=== PATIENT | female | born 1985 | race Caucasian/White ===

== ENCOUNTER 2025-02-28 17:43 | Inpatient (IN) ==
[2025-02-28] MEDS: SODIUM CHLORIDE 0.9% 1,000 ML IV SCH (18:27)
[2025-02-28] MEDS: dexAMETHasone**PF** 10 MG/ML VIAL IV ONE (18:28)
[2025-02-28] MEDS: ACETAMINOPHEN 1000 MG/100 ML IV IV STA (18:31)
--- NOTE | 2025-02-28 18:36 | Emergency Department Note ---
Impression & Plan Seizures, Hypoxia, Leukocytosis ED Provider Note NAME: NACNY PETERSON AGE: 39 SEX: F : 1985 ARRIVES VIA: Ambulance INFORMANT: Patient, ED PROVIDER(S): Leighton Desouza MD CHIEF COMPLAINT: Seizure, headache MEDICAL DECISION MAKING: Patient presents with the above. IV was established and blood work was obtained. Patient with crackles bilateral breath sounds known history of vaping chest x-ray was obtained as the patient is hypoxic to 88%. Park shows a white count of 13 with a normal hemoglobin and platelet count kidney function is unremarkable. The patient did have an oxygen requirement to believe the patient would benefit from admission. The patient was ordered IV Rocephin. The patient may have aspirated although the patient denies any vomiting. Patient did receive her Keppra load. I did speak the on-call hospitalist service and the patient was admitted to the medicine service. I did speak with Dr. Jacobsen with neurology as the patient reportedly had 3 [id number] seizures prior to arrival he stated does not require necessarily EEG as she has a known history but does not require a continuous EEG monitoring as the patient is had no further seizures here in the department. This was conveyed to the inpatient service. Critical Care: I have personally spent 35 minutes of critical care time in direct management of this patient. This includes bedside care, interpretation of diagnostic studies, and testing, discussion with consultants, patient, and family members, and other require inpatient management activities. This 35 minutes is in excess of all separately billable procedures. Discussion w/ other healthcare providers: SULMA Dudley Dr. inpatient medicine service Dr. Jacobsen neurology Prior /Outside records reviewed: None Differential diagnosis: Epilepsy, infection, hypoglycemia, electrolyte abnormalities, cardiac sources, intracerebral event, trauma, toxicologic, neurologic, syncope, as well as other pathologies. Diagnostics, as interpreted by me: ECG: None Cardiac monitoring: An order was placed for continuous cardiac monitoring. The monitor shows a rate of 89 with sinus rhythm. Patient was placed on pulse oximetry Medical decision rules: None Imaging studies: I informally interpreted the patient's chest x-ray does not show his pneumonia or pneumothorax with formal report to follow. HPI: Patient presents due to concern for seizure. This reportedly occurred just prior to arrival. Blood sugar in the 130s. No reported infectious symptoms. She reports that she does have a known history of seizures and does follow with Dr. Dan. She also reports that she has a right sided 2 mm aneurysm. She does complain of headache. She denies any infectious symptoms cough or fever. Patient denies any shortness of breath or chest pain. Patient reportedly was 88% on room air. Patient does admit to vaping but denies any alcohol or drug use. PAST MEDICAL HISTORY: See Below PAST SURGICAL HISTORY: See Below SOCIAL HISTORY: See Below HOME MEDICATIONS: See Below ALLERGIES: See Below VITALS: See Below PHYSICAL EXAMINATION: GENERAL: NAD, non-toxic. BMI 49. EYE EXAM: Normal conjunctiva. PERRL, no anisocoria and EOM's grossly intact w/o pain. OROPHARYNX: Dry mucus membranes, edentulous. NECK: Trachea midline, no stridor. LUNGS: Crackles bilaterally. Normal chest wall mechanics. HEART: NSR, no MRG. ABDOMEN: Abdomen soft, non-tender, no masses, no rebound or guarding. BACK: No CVA TTP. SKIN: No rashes and no bruising. UPPER EXTREMITIES: Upper extremities are grossly normal. LOWER EXTREMITIES: Grossly normal, no edema. NEURO EXAM: Awake and alert, follows commands, no obvious facial asymmetry, normal speech, moves all 4 extremities. Good [id number], no drift and no sensory deficits. Past Med/Surg History Problem List (Updated 03/04/25 @ 15:32 by Leighton Desouza MD) Leukocytosis (Acute) Hypoxia (Acute) Seizures (Acute) Cerebral aneurysm without rupture Migraine Excessive daytime sleepiness Atypical seizure Seizure disorder Unspecified convulsions Other seizures Obesity, unspecified Encounter for other preprocedural examination Opioid dependence, uncomplicated Medical History Morbid exogenous obesity COPD (chronic obstructive pulmonary disease) Fatty (change of) liver, not elsewhere classified Insomnia, unspecified Major depressive disorder, single episode, unspecified Unspecified osteoarthritis, unspecified site Post-traumatic stress disorder, unspecified Gastro-esophageal reflux disease without esophagitis Type 2 diabetes mellitus Surgical History S/P colonoscopy S/P hysterectomy with oophorectomy S/P dilatation and curettage S/P tonsillectomy and adenoidectomy S/P cholecystectomy Family History Father Seizure Social History Smoking Status: Current every day smoker Tobacco Type: E-cigarettes / Vaping Age Quit Using Tobacco: 36; Second Hand Exposure: Yes; Do You Dip or Chew Tobacco: No; Hx Alcohol Use: No Hx Substance Use: No Preferred Language: Indonesian Communication Ability: Effective 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 esomeprazole [From Nexium] Allergy Intermediate Hives Verified 02/28/25 20:03 aspirin AdvReac Intermediate LOW Verified 02/28/25 20:03 DOSE-OKAY, HIGH DOSE IRRITATED STOMACH codeine AdvReac Intermediate IRRITATED Verified 02/28/25 20:03 ESOPHAGUS acetaminophen [From Tylenol] AdvReac Unknown CONTRAINDICATED Verified 02/28/25 20:03 D/T LIVER ISSUES Home Meds Home Medications Medication Instructions Recorded Confirmed albuterol sulfate 90 mcg/actuation 2 puff inhalation Q6H PRN 11/29/22 02/28/25 aerosol inhaler Shortness Of Breath Or Wheezing cholecalciferol (vitamin D3) 125 125 mcg PO DAILY 11/29/22 02/28/25 mcg (5,000 unit) capsule escitalopram oxalate 10 mg tablet 10 mg PO DAILY 11/29/22 02/28/25 famotidine 20 mg tablet 20 mg PO HS 11/29/22 02/28/25 fluticasone 100 mcg-salmeterol 50 1 inh inhalation BID 11/29/22 02/28/25 mcg/dose blistr powdr for inhalation (Advair Diskus) gabapentin 800 mg tablet 800 mg PO TID 11/29/22 02/28/25 glucose 4 gram chewable tablet 4 g PO Q15M PRN Hypoglycemia 11/29/22 02/28/25 ibuprofen 800 mg tablet 800 mg PO DAILY PRN Pain 11/29/22 02/28/25 magnesium oxide 400 mg PO DAILY 11/29/22 02/28/25 metformin 500 mg tablet 500 mg PO BID 11/29/22 02/28/25 pantoprazole 40 mg tablet,delayed 40 mg PO DAILY 11/29/22 02/28/25 release quetiapine 400 mg tablet (Seroquel) 800 mg PO HS 11/29/22 02/28/25 simvastatin 20 mg tablet (Zocor) 20 mg PO QPM 11/29/22 02/28/25 hydroxyzine HCl 50 mg tablet 200 mg PO HS 03/09/23 02/28/25 benzonatate 200 mg capsule 200 mg PO BID PRN Cough 10/16/24 02/28/25 diphenhydramine HCl 25 mg capsule 25 mg PO TID PRN ALLERGIES 10/16/24 02/28/25 (Allergy (diphenhydramine)) diazepam 5 mg/spray (0.1 mL) nasal 5 mg intranasal .COMPLEX PRN 02/28/25 02/28/25 spray Seizure Activity dulaglutide 0.75 mg/0.5 mL 0.75 mg subcut WK 02/28/25 02/28/25 subcutaneous pen injector (Trulicity) Previous Rx's Medication Instructions Recorded prochlorperazine maleate 5 mg 5 mg PO TID PRN nausea and 12/29/23 tablet vomiting #10 tabs galcanezumab-gnlm 120 mg/mL 120 mg subcut .COMPLEX #1 mL 01/23/24 subcutaneous pen injector (Emgality Pen) topiramate 200 mg tablet 200 mg PO BID 30 days #60 tabs 11/06/24 lamotrigine 200 mg tablet 200 mg PO BID 30 days #60 tabs 12/18/24 lamotrigine 25 mg tablet 50 mg (2 x 25 mg) PO BID #60 tabs 12/18/24 clonazepam 1 mg disintegrating 1 mg PO DAILY PRN seizure activity 02/20/25 tablet #20 tabs rizatriptan 10 mg disintegrating 10 mg PO Q2H PRN migraine headache 02/20/25 tablet #12 tabs Results & Data (ED) Vital Signs Vital Signs - 24 hr 02/28/25 17:53 02/28/25 17:55 02/28/25 18:31 Temperature 37 C Temperature Source Oral Pulse Rate 93 H 97 H Respiratory Rate 20 Blood Pressure 105/77 Blood Pressure Mean 86 Pulse Oximetry 94 88 L Oxygen Delivery Method Nasal Cannula Room Air Oxygen Flow Rate 2 0 Sepsis Recent Fever Within 48 Hours No Sepsis New/Unexplained Change in Mental Status No Sepsis Action Taken by Nursing No Action Required Oxygen Flow Rate - Titration 2 Pulse Oximetry Post Tiitration 92 Home Medications Current Medication List: was personally reviewed by me Laboratory Data Attestation: I reviewed the patient's lab results. 03/03/25 05:57 03/01/25 08:21 Lab Results 02/28/25 Range/Units 18:00 WBC 13.65 H (4.8-10.8) K/ul RBC 4.91 (4.20-5.40) M/uL Hgb 13.9 (12.0-16.0) g/dl Hct 42.4 (37.0-47.0) % MCV 86.4 (80.0-100.0) fL MCH 28.3 (25.0-34.0) pg MCHC 32.8 (32.0-36.0) g/dL RDW Std Deviation 39.0 (36.4-46.3) fL RDW Coeff of Ion 12.4 (11.5-14.5) % Plt Count 259 (130-400) K/uL MPV 9.2 L (9.4-12.4) fL Immature Gran % (Auto) 0.4 % Neut % (Auto) 82.5 % Lymph % (Auto) 11.0 % Walton % (Auto) 4.6 % Eos % (Auto) 1.2 % Baso % (Auto) 0.3 % Neut # (Auto) 11.26 H (1.40-6.50) K/uL Lymph # (Auto) 1.50 (1.20-3.40) K/uL Walton # (Auto) 0.63 H (0.11-0.59) K/uL Eos # (Auto) 0.16 (0.00-0.50) K/uL Baso # (Auto) 0.04 (0.00-0.20) K/uL Immature Gran # (Auto) 0.06 (0.01-0.20) K/uL ESR 35 H (0-20) mm/hr Sodium 140 (136-145) mmol/L Potassium 4.2 (3.5-5.1) mmol/L Chloride 106 (98-107) mmol/L Carbon Dioxide 25 (21-32) mmol/L Anion Gap 9 (3-11) BUN 13 (6-23) mg/dl Creatinine 0.85 (0.6-1.2) mg/dl Est Cr Clr Drug Dosing 128.5 ml/min eGFR 89.88 BUN/Creatinine Ratio 15.3 (10-20) Glucose 83 (70-99(Fasting)) mg/dl Calcium 8.8 (8.6-10.3) mg/dl Total Bilirubin 0.3 (0.2-1.0) mg/dl Direct Bilirubin 0.0 (0-0.2) mg/dl AST 14 (13-39) U/L ALT 12 (7-52) U/L Alkaline Phosphatase 148 H (34-104) U/L Total Protein 7.2 (6.0-8.3) gm/dl Albumin 4.0 (3.4-5.0) gm/dl Procalcitonin 0.05 (0-0.5) ng/ml Prolactin 17.78 ng/ml Administered Medications Discontinued Medications Acetaminophen (Acetaminophen 1000 Mg/100 Ml Iv) 1,000 mg IV NOW STA Stop: 02/28/25 18:12 Last Admin: 02/28/25 18:31 Dose: Not Given Documented By: NRB Cefuroxime Axetil (Cefuroxime Axetil 500 Mg Tab) 500 mg PO Q12 REYES Stop: 03/03/25 09:26 Last Admin: 03/03/25 09:58 Dose: 500 mg Documented By: FERNANDA Dexamethasone Sodium Phosphate (DexamethasonePf 10 Mg/Ml Vial) 10 mg IV NOW ONE Stop: 02/28/25 18:12 Last Admin: 02/28/25 18:28 Dose: 10 mg Documented By: NRRadha Escitalopram Oxalate (Escitalopram Oxalate 10 Mg Tab) 10 mg PO DAILY REYES Stop: 03/31/25 08:59 Last Admin: 03/03/25 09:18 Dose: 10 mg Documented By: Admin: 03/02/25 09:21 Dose: 10 mg Documented By: Admin: 03/01/25 10:04 Dose: Not Given Documented By: ES Famotidine (Famotidine 20 Mg Tab) 20 mg PO HS REYES Stop: 03/31/25 20:59 Last Admin: 03/02/25 20:05 Dose: 20 mg Documented By: [facility] Admin: 03/01/25 20:16 Dose: 20 mg Documented By: MARIA LUISA Fluticasone/Vilanterol (Fluticasone/Vilanterol 100/25mcg 14 Puffs/Inhaler) 1 puffs INH DAILY REYES Stop: 03/31/25 08:59 Last Admin: 03/03/25 09:19 Dose: 1 puffs Documented By: Admin: 03/02/25 09:19 Dose: 1 puffs Documented By: Admin: 03/01/25 10:04 Dose: Not Given Documented By: AIDEN Gabapentin (Gabapentin 800 Mg Tab) 800 mg PO TID REYES Stop: 03/31/25 08:59 Last Admin: 03/03/25 09:17 Dose: 800 mg Documented By: Admin: 03/02/25 20:07 Dose: 800 mg Documented By: [facility] Admin: 03/02/25 14:59 Dose: 800 mg Documented By: Admin: 03/02/25 09:21 Dose: 800 mg Documented By: Admin: 03/01/25 20:11 Dose: 800 mg Documented By: MARIA LUISA Admin: 03/01/25 13:02 Dose: Not Given Documented By: Admin: 03/01/25 10:04 Dose: Not Given Documented By: AIDEN Hydroxyzine HCl (Hydroxyzine Hcl 25 Mg Tab) 100 mg PO HS REYES Stop: 03/31/25 20:59 Last Admin: 03/02/25 20:05 Dose: 100 mg Documented By: MARIA LUISA Admin: 03/01/25 20:12 Dose: 100 mg Documented By: DARIN Sodium Chloride (Nss) 1,000 mls @ 999 mls/hr IV .Q1H1M REYES Stop: 02/28/25 19:15 Last Infusion: 02/28/25 20:00 Dose: Infused Documented By: Admin: 02/28/25 18:27 Dose: 999 mls/hr Documented By: JOHN Ceftriaxone Sodium (Rocephin) 2,000 mg in 50 mls @ 100 mls/hr IV NOW STA Stop: 02/28/25 20:29 Last Infusion: 03/01/25 01:12 Dose: Infused Documented By: MARIA LUISA Admin: 02/28/25 20:28 Dose: 100 mls/hr Documented By: ISAURO Cefepime HCl (Maxipime 2000mg) 1,000 mg in 10 mls @ 5 mls/min IV Q12H [facility]; Protocol Stop: 03/06/25 00:44 Last Admin: 03/03/25 02:13 Dose: 5 mls/min Documented By: Admin: 03/02/25 15:01 Dose: 5 mls/min Documented By: Admin: 03/02/25 01:56 Dose: 5 mls/min Documented By: MARIA LUISA Admin: 03/01/25 13:27 Dose: 5 mls/min Documented By: Admin: 03/01/25 01:28 Dose: 5 mls/min Documented By: DARIN Ioversol (Optiray 320 125ml) 115 ml IV ONCE ONE Stop: 02/28/25 19:31 Last Admin: 02/28/25 19:31 Dose: 115 ml Documented By: JANUSZ Lamotrigine (Lamotrigine 25 Mg Tab) 50 mg PO BID [facility]; Protocol Stop: 03/31/25 08:59 Last Admin: 03/03/25 09:18 Dose: 50 mg Documented By: Admin: 03/02/25 20:08 Dose: 50 mg Documented By: MARIA LUISA Admin: 03/02/25 09:20 Dose: 50 mg Documented By: Admin: 03/01/25 20:11 Dose: 50 mg Documented By: MARIA LUISA Admin: 03/01/25 10:04 Dose: Not Given Documented By: AIDEN Lamotrigine (Lamotrigine 100 Mg Tab) 200 mg PO BID [facility] Stop: 03/31/25 08:59 Last Admin: 03/03/25 09:17 Dose: 200 mg Documented By: Admin: 03/02/25 20:07 Dose: 200 mg Documented By: MARIA LUISA Admin: 03/02/25 09:21 Dose: 200 mg Documented By: Admin: 03/01/25 20:13 Dose: 200 mg Documented By: MARIA LUISA Admin: 03/01/25 10:05 Dose: Not Given Documented By: AIDEN Levetiracetam (Levetiracetam 500 Mg/5 Ml Vial) 2,750 mg IV NOW STA Stop: 02/28/25 18:21 Last Admin: 02/28/25 18:31 Dose: 2,750 mg Documented By: NRRadha Lorazepam (Lorazepam 2 Mg/1 Ml Vial) 1 mg IV NOW STA Stop: 02/28/25 21:53 Last Admin: 02/28/25 22:03 Dose: 1 mg Documented By: MAIKEL Lorazepam (Lorazepam 2 Mg/1 Ml Vial) Confirm Administered Dose 2 mg .ROUTE .STK- MED ONE Stop: 03/01/25 07:59 Last Admin: 03/01/25 08:01 Dose: 2 mg Documented By: AIDEN Lorazepam (Lorazepam 2 Mg/1 Ml Vial) 2 mg IV NOW STA Stop: 03/01/25 08:11 Last Admin: 03/01/25 09:36 Dose: Not Given Documented By: ES Melatonin (Melatonin 3 Mg Tab) 3 mg PO HS PRN PRN Reason: Sleep Stop: 03/31/25 00:44 Last Admin: 03/02/25 20:05 Dose: 3 mg Documented By: GTLaura Admin: 03/01/25 20:16 Dose: 3 mg Documented By: DARIN Miscellaneous (Remove Nicoderm Patch) 1 each N/A DAILY@0859 [facility] Stop: 03/31/25 08:58 Last Admin: 03/03/25 09:19 Dose: 1 each Documented By: Admin: 03/02/25 09:21 Dose: 1 each Documented By: Admin: 03/01/25 10:04 Dose: 1 each Documented By: AIDEN Nicotine (Nicotine 14 Mg/24 Hr Patch) 1 patch TD QAM [facility] Stop: 03/31/25 08:59 Last Admin: 03/03/25 09:19 Dose: 1 patch Documented By: Admin: 03/02/25 09:21 Dose: 1 patch Documented By: Admin: 03/01/25 10:05 Dose: Not Given Documented By: ES Ondansetron HCl (Ondansetron Inj 2 Mg/Ml 2 Ml Vial) 4 mg IV NOW STA Stop: 02/28/25 18:44 Last Admin: 02/28/25 18:47 Dose: 4 mg Documented By: NRRadha Pantoprazole Sodium (Pantoprazole 40 Mg Tab) 40 mg PO DAILY REYES Stop: 03/31/25 08:59 Last Admin: 03/03/25 09:17 Dose: 40 mg Documented By: Admin: 03/02/25 09:21 Dose: 40 mg Documented By: Admin: 03/01/25 10:05 Dose: Not Given Documented By: AIDEN Quetiapine Fumarate (Quetiapine Fumarate 200 Mg Tab) 800 mg PO HS REYES Stop: 03/31/25 20:59 Last Admin: 03/02/25 20:06 Dose: 800 mg Documented By: [facility] Admin: 03/01/25 20:13 Dose: 800 mg Documented By: [facility] Simvastatin (Simvastatin 20 Mg Tab) 20 mg PO QPM REYES Stop: 03/31/25 20:59 Last Admin: 03/02/25 20:08 Dose: 20 mg Documented By: [facility] Admin: 03/01/25 20:14 Dose: 20 mg Documented By: [facility] Topiramate (Topiramate 100 Mg Tab) 200 mg PO BID REYES Stop: 03/31/25 08:59 Last Admin: 03/03/25 09:17 Dose: 200 mg Documented By: Admin: 03/02/25 20:08 Dose: 200 mg Documented By: [facility] Admin: 03/02/25 09:21 Dose: 200 mg Documented By: Admin: 03/01/25 20:13 Dose: 200 mg Documented By: [facility] Admin: 03/01/25 10:06 Dose: Not Given Documented By: AIDEN Imaging Data Radiologist's Impression: Chest X-Ray 02/28/25 18:36 Chest radiograph, one view History: C axial Comparison: None Findings: Single AP view of the chest performed. There is a retrocardiac opacity. No focal consolidation or pleural effusion. No pneumothorax. The cardiomediastinal silhouette is within normal limits. Normal pulmonary vascularity. No evidence for lymphadenopathy. No visualized bony or soft tissue abnormality. Impression: Normal chest radiograph Retrocardiac opacity, favors a hiatal hernia. Consider follow-up CT. Electronically signed by Zachariah Dumont 02-28-2025 6:53 PM Discharge Plan Visit Data Chief Complaint: Seizure ED Provider: Leighton Desouza Discharge Problem: Seizures, Hypoxia, Leukocytosis Patient Disposition: Admitted As Inpatient Condition: Fair Discharge Instructions Interventions: ED Discharge Assessment Last Done: 03/01/25 00:16 Discharge Problem: Leukocytosis Qualifiers: Leukocytosis type: unspecified Qualified Code(s): D72.829 - Elevated white blood cell count, unspecified
[2025-02-28 18:44] LABS: Hematocrit (blood only) 42.4 % (37.0-47.0); Hemoglobin 13.9 g/dl (12.0-16.0); Immature Granulocytes # (auto) 0.06 K/uL (0.01-0.20); Immature Granulocytes % (auto) 0.4 %; Mean Corpuscular Hemoglobin 28.3 pg (25.0-34.0); Mean Corpuscular Volume 86.4 fL (80.0-100.0); Platelet Count 259 K/uL (130-400); RDW Standard Deviation 39.0 fL (36.4-46.3); Red Blood Count 4.91 M/uL (4.20-5.40); White Blood Count 13.65 K/ul (4.8-10.8)
[2025-02-28] MEDS: ONDANSETRON INJ 2 MG/ML 2 ML VIAL IV STA (18:47)
--- NOTE | 2025-02-28 18:53 | XRay Report ---
Chest radiograph, one view History: C axial Comparison: None Findings: Single AP view of the chest performed. There is a retrocardiac opacity. No focal consolidation or pleural effusion. No pneumothorax. The cardiomediastinal silhouette is within normal limits. Normal pulmonary vascularity. No evidence for lymphadenopathy. No visualized bony or soft tissue abnormality. Impression: Normal chest radiograph Retrocardiac opacity, favors a hiatal hernia. Consider follow-up CT. Electronically signed by Zachariah Dumnot 02-28-2025 6:53 PM
[2025-02-28 19:00] LABS: Anion Gap 9.0 (3-11); Blood Urea Nitrogen 13.0 mg/dl (6-23); Calcium 8.8 mg/dl (8.6-10.3); Carbon Dioxide 25.0 mmol/L (21-32); Chloride 106.0 mmol/L (98-107); Creatinine Clr Calc Pharmacy 128.5 ml/min; Glucose 83.0 mg/dl (70-99(Fasting)); Potassium 4.2 mmol/L (3.5-5.1); Sodium 140.0 mmol/L (136-145)
[2025-02-28] MEDS: OPTIRAY 320 125ml IV ONE (19:31)
--- NOTE | 2025-02-28 19:53 | CT Scan Report ---
Clinical History: Headaches. Technique: Axial computed tomography images were obtained of the brain from the vertex to the skull base without intravenous contrast. Findings: There is no sign of intracranial hemorrhage. There is normal montes-white matter differentiation with no sign of acute or old infarction. No midline shift or other form of herniation is identified. There is no hydrocephalus. No obvious mass lesion is seen on this noncontrast examination. The visualized portions of the orbits and paranasal sinuses appear unremarkable. The mastoid air cells appear clear Impression: Unremarkable noncontrast CT of the brain Electronically signed by Faustino Lundberg 02-28-2025 7:53 PM
--- NOTE | 2025-02-28 19:54 | CT Scan Report ---
Clinical history: Headache Technique: Axial computed tomography images were obtained of the brain after the administration of intravenous contrast according to the CT angiogram protocol Findings: No definite stenosis or aneurysm is seen of the anterior, middle, or posterior cerebral artery circulations. The visualized vertebral arteries and the basilar artery appear unremarkable Impression: No definite stenosis or aneurysm of the intracranial arteries Electronically signed by Faustino Lundberg 02-28-2025 7:54 PM
--- NOTE | 2025-02-28 19:56 | CT Scan Report ---
Technique: Axial computed tomography images were obtained of the neck after the administration of intravenous contrast according to the CT angiogram protocol Comparison is made to the prior CTA dated 07/11/2023 Findings: No stenosis is seen of the common carotid arteries bilaterally. The carotid bulbs appear normal. The remainder of the internal carotid arteries appear patent bilaterally. No stenosis of the external carotid arteries is seen The vertebral arteries are patent bilaterally with no significant stenosis seen. The visualized thoracic aorta appears unremarkable Impression: Unremarkable CTA of the neck Electronically signed by Faustino Lundberg 02-28-2025 7:56 PM
[2025-02-28] MEDS: cefTRIAXone SODIUM 2,000 MG/50 ML BAG IV STA (20:28)
[2025-02-28 21:16] LABS: Alanine Aminotransferase 12.0 U/L (7-52); Albumin Level 4.0 gm/dl (3.4-5.0); Alkaline Phosphatase 148.0 U/L (34-104); Bilirubin,Total 0.3 mg/dl (0.2-1.0); Total Protein 7.2 gm/dl (6.0-8.3)
--- NOTE | 2025-02-28 21:38 | History & Physical Report ---
Date of Service February 28, 2025 Assessment & Plan (1) Seizures: (2) Hypoxia: (3) Leukocytosis: Plan addendum - UA returned suspicious for UTI. Will transition coverage to cefepime given DM history. Follow urine cultures. Patient is a 39-year-old female with past medical history of seizure disorder, obesity with a BMI of 49, COPD, fatty liver disease, type II DM, GERD, depression. Patient presented via EMS after 3 seizures at home; the first 1 was at home and her family used her rescue diazepam intranasal spray (5 mg/spray), 2 were witnessed by EMS (one lasted 3 minutes reportedly, the second lasted reportedly 30 seconds). she was given Keppra 275 mg IV in the ED and is being admitted for further seizure workup. #Seizures - history of seizure disorder (nonepileptic and epileptic) with recent increase in seizures, 3 reported seizures 02/28. Head CT and CTAs negative for acute changes. BSG 83, WBC 13.65, CXR negative for acute changes, electrolytes and renal function stable. ESR 35, procalcitonin 0.05, prolactin 17.78. - MRI brain and EEG ordered - consult neurology - 2750 mg IV Keppra in ED; start 500mg BID tomorrow - continue lamotrigine 250 mg twice daily and Topiramate 200 mg twice daily as usual Given Decadron 10 mg IV in the ED, defer further steroid use as no acute indication at time of admission Seizure precautions - monitor on telemetry Trend CBC and CMP - patient's outpatient neurologist has been discussing decreasing home Seroquel as it reduces seizure threshold, will defer at this time however could consider #Hypoxianoted to be 88% in room air in the ED. CXR negative for acute changes, lungs clear bilaterally at time of admission, patient denies any vomiting at time of event, low concern for aspiration. Likely component of obesity hypoventilation syndrome with sedating agents. Wean oxygen as tolerated Incentive spirometry #LeukocytosisWBC 13.6 by the time of admission. CXR negative for acute infection. Patient denies any fevers, chills, GI symptoms, dysuria. Empirically given Rocephin 2G IV in the ED, defer further ABX use UA ordered Trend CBC #Type II DMhold metformin. Defer SSI once medically becomes required. Continue gabapentin for neuropathy #nicotine usevapes at baseline. Nicotine patch ordered Encourage smoking cessation #Mental healthcontinue Lexapro and Seroquel #GERDcontinue famotidine and pantoprazole VTE ppx: SCDs, low risk Dispo: PCU Admission and Anticipated Discharge Date Admission Date: 02/28/25 History of Present Illness Chief Complaint: seizure Primary Care Provider: Mookie Regan Patient is a 39-year-old female with past medical history of seizure disorder, obesity with a BMI of 49, COPD, fatty liver disease, type II DM, GERD, depression. Patient presented via EMS after 3 seizures at home; the first 1 was at home and her family used her rescue diazepam intranasal spray (5 mg/spray), 2 were witnessed by EMS (one lasted 3 minutes reportedly, the second lasted reportedly 30 seconds). she was given Keppra 275 mg IV in the ED and is being admitted for further seizure workup. Patient seen at bedside. She is tired however responds to verbal stimuli after Keppra in the ED. She stated she felt weird/flushed which she typically feels prior to her seizure and had a seizure at home with her family. She is unaware of what is happening during the seizure and is unsure of how long the first one lasted however stated her family did use her intranasal diazepam spray. En route with EMS she reportedly had 2 witnessed seizures, the first lasting 3 minutes, the second lasting 30 seconds in which she did not fully wake up from and was reportedly flaccid. Patient is alert and oriented at time of admission. She stated she took her home medications as she usual, reviewed neurology records which show lamotrigine increased from 200 mg twice daily to 225 mg twice daily 12/18. Neurologist recommended MRI and EEG at this time however has not yet been completed. I will just also mention decreasing Seroquel as it lowers her seizure threshold however held off at this time. Patient currently just has a headache in her right eye which is typical with all of her seizures. She also complains of right arm numbness which has been present since she had COVID in 2020. She denies any dizziness, lightheadedness, chest pain, shortness of breath, abdominal pain, nausea, vomiting, diarrhea. She does report difficulty urinating at home due to difficulty with ambulation, denies any dysuria. She denies any vomiting during the seizure today. She does endorse vaping use and would like a nicotine patch, ordered. She denies any alcohol use or illicit drug use. She does not use any oxygen at baseline however was noted to be 88% on room air in the ED and is currently on 2L NC. She took all of her medications today as usual. She wishes to be full code. patient noted that she previously went to [place] [facility] about 1 year ago and reportedly was diagnosed with a 2 mm brain aneurysm however not noted on diagnostic imaging today. Discussion with the ER staff who spoke with on-call neurologist. Reportedly no need for continuous EEG monitoring. Discussion with pharmacy staff regarding continuation of Keppra given patient's elevated BMIstudies revealed psych to continue with Keppra 500 mg twice daily with gradual increase to 1500 mg twice daily. Allergies Allergy/AdvReac Type Severity Reaction Status Date / Time Penicillins Allergy Severe "THROAT Verified 02/28/25 20:03 CLOSED AT AGE 4 YRS OLD". esomeprazole [From Nexium] Allergy Intermediate Hives Verified 02/28/25 20:03 aspirin AdvReac Intermediate LOW Verified 02/28/25 20:03 DOSE-OKAY, HIGH DOSE IRRITATED STOMACH codeine AdvReac Intermediate IRRITATED Verified 02/28/25 20:03 ESOPHAGUS acetaminophen [From Tylenol] AdvReac Unknown CONTRAINDICATED Verified 02/28/25 20:03 D/T LIVER ISSUES Home Medications Medication Instructions Recorded Confirmed Type albuterol sulfate 90 mcg/actuation 2 puff inhalation Q6H PRN 11/29/22 02/28/25 History aerosol inhaler Shortness Of Breath Or Wheezing cholecalciferol (vitamin D3) 125 125 mcg PO DAILY 11/29/22 02/28/25 History mcg (5,000 unit) capsule escitalopram oxalate 10 mg tablet 10 mg PO DAILY 11/29/22 02/28/25 History famotidine 20 mg tablet 20 mg PO HS 11/29/22 02/28/25 History fluticasone 100 mcg-salmeterol 50 1 inh inhalation BID 11/29/22 02/28/25 History mcg/dose blistr powdr for inhalation (Advair Diskus) gabapentin 800 mg tablet 800 mg PO TID 11/29/22 02/28/25 History glucose 4 gram chewable tablet 4 g PO Q15M PRN Hypoglycemia 11/29/22 02/28/25 History ibuprofen 800 mg tablet 800 mg PO DAILY PRN Pain 11/29/22 02/28/25 History magnesium oxide 400 mg PO DAILY 11/29/22 02/28/25 History metformin 500 mg tablet 500 mg PO BID 11/29/22 02/28/25 History pantoprazole 40 mg tablet,delayed 40 mg PO DAILY 11/29/22 02/28/25 History release quetiapine 400 mg tablet (Seroquel) 800 mg PO HS 11/29/22 02/28/25 History simvastatin 20 mg tablet (Zocor) 20 mg PO QPM 11/29/22 02/28/25 History hydroxyzine HCl 50 mg tablet 200 mg PO HS 03/09/23 02/28/25 History prochlorperazine maleate 5 mg 5 mg PO TID PRN nausea and 12/29/23 02/28/25 Rx tablet vomiting #10 tabs galcanezumab-gnlm 120 mg/mL 120 mg subcut .COMPLEX #1 mL 01/23/24 02/28/25 Rx subcutaneous pen injector (Emgality Pen) benzonatate 200 mg capsule 200 mg PO BID PRN Cough 10/16/24 02/28/25 History diphenhydramine HCl 25 mg capsule 25 mg PO TID PRN ALLERGIES 10/16/24 02/28/25 History (Allergy (diphenhydramine)) topiramate 200 mg tablet 200 mg PO BID 30 days #60 tabs 11/06/24 02/28/25 Rx lamotrigine 200 mg tablet 200 mg PO BID 30 days #60 tabs 12/18/24 02/28/25 Rx lamotrigine 25 mg tablet 50 mg (2 x 25 mg) PO BID #60 tabs 12/18/24 02/28/25 Rx clonazepam 1 mg disintegrating 1 mg PO DAILY PRN seizure activity 02/20/25 02/28/25 Rx tablet #20 tabs rizatriptan 10 mg disintegrating 10 mg PO Q2H PRN migraine headache 02/20/25 02/28/25 Rx tablet #12 tabs diazepam 5 mg/spray (0.1 mL) nasal 5 mg intranasal .COMPLEX PRN 02/28/25 02/28/25 History spray Seizure Activity dulaglutide 0.75 mg/0.5 mL 0.75 mg subcut WK 02/28/25 02/28/25 History subcutaneous pen injector (Trulicity) Past Med/Surg History Problem List (Updated 02/28/25 @ 23:43 by Alexandra Mackenzie PA-C) Leukocytosis Hypoxia Seizures Cerebral aneurysm without rupture Migraine Excessive daytime sleepiness Atypical seizure Seizure disorder Unspecified convulsions Other seizures Obesity, unspecified Encounter for other preprocedural examination Opioid dependence, uncomplicated Medical History Morbid exogenous obesity COPD (chronic obstructive pulmonary disease) Fatty (change of) liver, not elsewhere classified Insomnia, unspecified Major depressive disorder, single episode, unspecified Unspecified osteoarthritis, unspecified site Post-traumatic stress disorder, unspecified Gastro-esophageal reflux disease without esophagitis Type 2 diabetes mellitus Surgical History S/P colonoscopy S/P hysterectomy with oophorectomy S/P dilatation and curettage S/P tonsillectomy and adenoidectomy S/P cholecystectomy Family History Father Seizure Social History Smoking Status: Current every day smoker Tobacco Type: E-cigarettes / Vaping Age Quit Using Tobacco: 36; Second Hand Exposure: Yes; Do You Dip or Chew Tobacco: No; Hx Alcohol Use: No Hx Substance Use: No Preferred Language: Mongolian Communication Ability: Effective Doorshaker Required: No Beliefs That Will Affect Care: None Current Living Situation: Family current occupational status: disabled How many Children do You have: 2 Feels Safe at Home: Yes Safety Concerns: Feels Safe At This Time Assistive Devices: CPAP Review of Systems Review of Systems: see HPI Physical Exam Physical Exam: The patient is tired however responds to verbal stimuli, alert and oriented 3, obese, normocephalic and atraumatic, in no acute distress. Non-toxic appearing. HEENT- EOMI, mucous membranes moist. Hearing grossly intact. Heart-normal S1 and S2. No murmurs, rubs or gallops. Lungs-clear bilaterally, no respiratory distress, no accessory muscle use. Abdomen-normal bowel sounds and soft. No ascites noted. Non-tender. Extremities- no clubbing, cyanosis, or edema. Rheumatologic-normal range of motion. Psychiatric-normal affect. Results & Data Results & Data Vital Signs (Past 12 Hours) Vital Signs Temp Pulse Resp BP Pulse Ox O2 Del Method O2 Flow Rate 02/28/25 20:00 88 18 103/74 95 02/28/25 18:31 88 L Room Air 0 02/28/25 18:00 96 H 19 96/80 L 90 02/28/25 17:55 97 H 02/28/25 17:53 37 C 93 H 20 105/77 94 Nasal Cannula 2 Laboratory Results Reviewed CBC and BMP Ordered LFTs, procalcitonin, prolactin, ESR, UA Diagnostic Findings reviewed head CT, head CTA, neck CTA, CXR Medications Administered ED1L NSS bolus, Tylenol 1G IV, dexamethasone 10 mg IV, Keppra 275 mg IV, Zofran 4 Mg IV, Rocephin 2G IV AdmissionAtivan 1 Mg IV as patient reportedly claustrophobic for MRI and requesting medication ECG Additional Comments: Ordered Code Status & VTE Plan Code Status full code VTE Prophylaxis Plan VTE Prophylaxis will be ordered: Yes Supervising Physician Co-Signing Physician Notes Attending addendum: I have physically seen this patient, have supervised the TREVER's activities, and agree with the H&P unless as otherwise noted. Assessment and Plan: The patient is an 39-year-old female with past medical history including seizure disorder, obesity with BMI 49, COPD, fatty liver disease, diabetes mellitus type 2, GERD, and depression. She presents to the emergency department via EMS after 3 seizures at outside hospital, with the first being at home in the last 2 en route to the hospital. Evaluation in the emergency department included a normal CT scan of head, CTA head and neck, and chest x-ray. From the ED the patient received the following: Tylenol 1 g IV, ceftriaxone 2 g IV, dexamethasone 10 mg IV, Keppra 2750 mg IV, normal saline 1 L bolus, and Zofran 4 mg IV. [facility]. Seizure disorder/3 outside hospital seizures on 02/28- Normal CT head, CTA head and neck. Order MRI brain Order EEG Received 2750 mg Keppra IV for loading dose, LV placed on Keppra 5 mg p.o. twice daily starting tomorrow a.m. Continue lamotrigine 250 mg p.o. twice daily and topiramate 200 mg p.o. twice daily Received Decadron 10 mg IV from the ED, will not order any further at this time Seizure precautions Follow serial CBC with differential and chemistry profile Hypoxia- Normal chest x-ray Likely secondary to obesity hypoventilation syndrome Incentive spirometry Continue home inhalers as needed Diabetes mellitus type 2- Hold metformin Placed on Accu-Cheks NovoLog SSI Peripheral neuropathy- Continue gabapentin Nicotine use/vaping- Nicotine patch as ordered Smoking cessation counseling GERD- Continue pantoprazole and famotidine PG Care Time/CCT Total # of Minutes Spent Total Time Spent with Patient: Total time spent is greater than 50% in coordination of care (as documented) at patient's floor/unit and/or counseling patient: Coding Level of Care Code 29160 INT INP/OBS CARE 375MIN Diagnoses Seizures R56.9 Hypoxia R09.02 Leukocytosis D72.829
[2025-02-28 22:17] LABS: Appearance Urine Clear (Clear); Bacteria Urine Automated 4+ (None Seen); Cast Urine Automated 0-2 /lpf (0-2); Epithelial Cell Urine Auto 0-2 /hpf (0-2); Glucose Urine UA Negative (Negative); RBC Urine Automated 0-2 /hpf (0-2); WBC Urine Automated 21-50 /hpf (0-5)
--- NOTE | 2025-02-28 23:56 | Magnetic Resonance Report ---
EXAM: MR brain wo con CLINICAL HISTORY: seizure TECHNIQUE: Multisequential and multiplanar images of the brain were submitted for review without contrast. COMPARISON: FINDINGS: The bilateral hippocampus and amygdala show normal signal intensity, with mild gney-hm-nown asymmetry, slightly lesser in volume on the right side. The brain demonstrates normal morphology, signal intensity, and volume for age. No focal parenchymal lesions are seen. No intracranial hemorrhage, mass effect, midline shift, extra-axial collection, or hydrocephalus is identified. The ventricles, sulci, and basal cisterns are symmetric and normal in size and configuration. Diffusion-weighted sequences show no evidence of acute ischemic infarction. The midline structures, including the pituitary gland, corpus callosum, pineal region, and brainstem, are unremarkable. The craniovertebral junction is within normal limits. No calvarial abnormalities are identified. The paranasal sinuses and mastoid air cells are clear. The orbital structures are unremarkable. Appropriate flow voids are present in the visualized intracranial vessels. IMPRESSION: 1. No acute ischemia, space-occupying mass, or other acute intracranial pathology is demonstrated. 2. Mild nubr-kc-idrg asymmetry of hippocampal volume, slightly lesser in volume on the right side. . Stable. Electronically signed by Bashir Chong 02-28-2025 11:56 PM
[2025-03-01] MEDS ORDERED: ALBUTEROL HFA 8 GM INHALER INH PRN (00:45)
[2025-03-01] MEDS ORDERED: ONDANSETRON INJ 2 MG/ML 2 ML VIAL IV PRN (00:45)
[2025-03-01] MEDS ORDERED: POLYETHYLENE (MIRALAX) 17 GM PACK PO PRN (00:45)
[2025-03-01] MEDS ORDERED: BENZONATATE 100 MG CAPSULE PO PRN (00:45)
[2025-03-01] MEDS: CEFEPIME 1000MG 1,000 MG/10 ML SYR IV SCH (01:28)
[2025-03-01 06:10] LABS: Hematocrit (blood only) 40.5 % (37.0-47.0); Hemoglobin 13.1 g/dl (12.0-16.0); Immature Granulocytes # (auto) 0.05 K/uL (0.01-0.20); Immature Granulocytes % (auto) 0.5 %; Mean Corpuscular Hemoglobin 27.9 pg (25.0-34.0); Mean Corpuscular Volume 86.4 fL (80.0-100.0); Platelet Count 263 K/uL (130-400); RDW Standard Deviation 38.6 fL (36.4-46.3); Red Blood Count 4.69 M/uL (4.20-5.40); White Blood Count 10.55 K/ul (4.8-10.8)
[2025-03-01 06:29] LABS: Alanine Aminotransferase 10.0 U/L (7-52); Albumin Globulin Ratio 1.3 (0.9-2); Albumin Level 3.7 gm/dl (3.4-5.0); Alkaline Phosphatase 131.0 U/L (34-104); Anion Gap 7.0 (3-11); Bilirubin,Total 0.2 mg/dl (0.2-1.0); Blood Urea Nitrogen 12.0 mg/dl (6-23); Calcium 8.5 mg/dl (8.6-10.3); Carbon Dioxide 25.0 mmol/L (21-32); Chloride 108.0 mmol/L (98-107); Creatinine Clr Calc Pharmacy 150.6 ml/min; Globulin 2.9 gm/dl (2.5-4.0); Glucose 115.0 mg/dl (70-99(Fasting)); Magnesium 1.8 mg/dl (1.7-2.4); Potassium 4.2 mmol/L (3.5-5.1); Sodium 140.0 mmol/L (136-145); Total Protein 6.6 gm/dl (6.0-8.3)
--- NOTE | 2025-03-01 07:18 | Electroencephalogram ---
EEG Procedure Note Date of Service March 01, 2025 Start / End Times Start Time: 604 End Time: 624 Referring Physician henrique blanchard History seizure Home Medication List Medication Instructions Recorded Confirmed Type albuterol sulfate 90 mcg/actuation 2 puff inhalation Q6H PRN 11/29/22 02/28/25 History aerosol inhaler Shortness Of Breath Or Wheezing cholecalciferol (vitamin D3) 125 125 mcg PO DAILY 11/29/22 02/28/25 History mcg (5,000 unit) capsule escitalopram oxalate 10 mg tablet 10 mg PO DAILY 11/29/22 02/28/25 History famotidine 20 mg tablet 20 mg PO HS 11/29/22 02/28/25 History fluticasone 100 mcg-salmeterol 50 1 inh inhalation BID 11/29/22 02/28/25 History mcg/dose blistr powdr for inhalation (Advair Diskus) gabapentin 800 mg tablet 800 mg PO TID 11/29/22 02/28/25 History glucose 4 gram chewable tablet 4 g PO Q15M PRN Hypoglycemia 11/29/22 02/28/25 History ibuprofen 800 mg tablet 800 mg PO DAILY PRN Pain 11/29/22 02/28/25 History magnesium oxide 400 mg PO DAILY 11/29/22 02/28/25 History metformin 500 mg tablet 500 mg PO BID 11/29/22 02/28/25 History pantoprazole 40 mg tablet,delayed 40 mg PO DAILY 11/29/22 02/28/25 History release quetiapine 400 mg tablet (Seroquel) 800 mg PO HS 11/29/22 02/28/25 History simvastatin 20 mg tablet (Zocor) 20 mg PO QPM 11/29/22 02/28/25 History hydroxyzine HCl 50 mg tablet 200 mg PO HS 03/09/23 02/28/25 History prochlorperazine maleate 5 mg 5 mg PO TID PRN nausea and 12/29/23 02/28/25 Rx tablet vomiting #10 tabs galcanezumab-gnlm 120 mg/mL 120 mg subcut .COMPLEX #1 mL 01/23/24 02/28/25 Rx subcutaneous pen injector (Emgality Pen) benzonatate 200 mg capsule 200 mg PO BID PRN Cough 10/16/24 02/28/25 History diphenhydramine HCl 25 mg capsule 25 mg PO TID PRN ALLERGIES 10/16/24 02/28/25 History (Allergy (diphenhydramine)) topiramate 200 mg tablet 200 mg PO BID 30 days #60 tabs 11/06/24 02/28/25 Rx lamotrigine 200 mg tablet 200 mg PO BID 30 days #60 tabs 12/18/24 02/28/25 Rx lamotrigine 25 mg tablet 50 mg (2 x 25 mg) PO BID #60 tabs 12/18/24 02/28/25 Rx clonazepam 1 mg disintegrating 1 mg PO DAILY PRN seizure activity 02/20/25 02/28/25 Rx tablet #20 tabs rizatriptan 10 mg disintegrating 10 mg PO Q2H PRN migraine headache 02/20/25 02/28/25 Rx tablet #12 tabs diazepam 5 mg/spray (0.1 mL) nasal 5 mg intranasal .COMPLEX PRN 02/28/25 02/28/25 History spray Seizure Activity dulaglutide 0.75 mg/0.5 mL 0.75 mg subcut WK 02/28/25 02/28/25 History subcutaneous pen injector (Trulicity) Inpatient Medication List Cefepime HCl (Maxipime 2000mg) 1,000 mg in 10 mls @ 5 mls/min IV Q12H [facility]; Protocol Stop: 03/06/25 00:44 Last Admin: 03/01/25 01:28 Dose: 5 mls/min Documented By: GT Discontinued Medications Acetaminophen (Acetaminophen 1000 Mg/100 Ml Iv) 1,000 mg IV NOW STA Stop: 02/28/25 18:12 Last Admin: 02/28/25 18:31 Dose: Not Given Documented By: NRB Dexamethasone Sodium Phosphate (DexamethasonePf 10 Mg/Ml Vial) 10 mg IV NOW ONE Stop: 02/28/25 18:12 Last Admin: 02/28/25 18:28 Dose: 10 mg Documented By: NRB Sodium Chloride (Nss) 1,000 mls @ 999 mls/hr IV .Q1H1M REYES Stop: 02/28/25 19:15 Last Infusion: 02/28/25 20:00 Dose: Infused Documented By: Admin: 02/28/25 18:27 Dose: 999 mls/hr Documented By: NRB Ceftriaxone Sodium (Rocephin) 2,000 mg in 50 mls @ 100 mls/hr IV NOW STA Stop: 02/28/25 20:29 Last Infusion: 03/01/25 01:12 Dose: Infused Documented By: Admin: 02/28/25 20:28 Dose: 100 mls/hr Documented By: ISAURO Ioversol (Optiray 320 125ml) 115 ml IV ONCE ONE Stop: 02/28/25 19:31 Last Admin: 02/28/25 19:31 Dose: 115 ml Documented By: JANUSZ Levetiracetam (Levetiracetam 500 Mg/5 Ml Vial) 2,750 mg IV NOW STA Stop: 02/28/25 18:21 Last Admin: 02/28/25 18:31 Dose: 2,750 mg Documented By: JOHN Lorazepam (Lorazepam 2 Mg/1 Ml Vial) 1 mg IV NOW STA Stop: 02/28/25 21:53 Last Admin: 02/28/25 22:03 Dose: 1 mg Documented By: MAIKEL Ondansetron HCl (Ondansetron Inj 2 Mg/Ml 2 Ml Vial) 4 mg IV NOW STA Stop: 02/28/25 18:44 Last Admin: 02/28/25 18:47 Dose: 4 mg Documented By: JOHN Description This is a 21 electrode EEG with a single channel dedicated to limited EKG. The electrodes were placed in accordance with the International 10-20 system. Interpretation This is a 21 electrode EEG with a single channel dedicated to limited EKG. The electrodes were placed in accordance with the International 10-20 system. There is a posterior dominant rhythm of 8 Hz which is symmetrically distributed and attenuates with eye opening. There is a normal anterior to posterior organization. Photic stimulation: unremarkable Hyperventilation performed: ___ unremarkable; _x_ not performed. There is no focal slowing. No epileptiform abnormalities. Sleep stage: _x_ not achieved, ___drowsy state, ___ Stage II, ___ REM stage achieved. Interpretation Normal-appearing awake EEG. [facility] EEG Procedure Codes Indication for Procedure (1) Seizures: Neurology Neurology: 65298 EEG include record awake & drowsy
--- NOTE | 2025-03-01 07:34 | Neurology Consultation ---
Date of Consultation March 01, 2025 Assessment & Plan (1) Seizures: History of Present Illness Attending Physician: Jairon Jin MD, PhD History of Present Illness S: pt this morning feeling well. resting. EEG normal. no further events. well known to Dr. Rivera. admission HPI: Patient is a 39-year-old female with past medical history of seizure disorder, obesity with a BMI of 49, COPD, fatty liver disease, type II DM, GERD, depression. Patient presented via EMS after 3 seizures at home; the first 1 was at home and her family used her rescue diazepam intranasal spray (5 mg/spray), 2 were witnessed by EMS (one lasted 3 minutes reportedly, the second lasted reportedly 30 seconds). she was given Keppra 275 mg IV in the ED and is being admitted for further seizure workup. Allergies Allergy/AdvReac Type Severity Reaction Status Date / Time Penicillins Allergy Severe "THROAT Verified 02/28/25 20:03 CLOSED AT AGE 4 YRS OLD". esomeprazole [From Nexium] Allergy Intermediate Hives Verified 02/28/25 20:03 aspirin AdvReac Intermediate LOW Verified 02/28/25 20:03 DOSE-OKAY, HIGH DOSE IRRITATED STOMACH codeine AdvReac Intermediate IRRITATED Verified 02/28/25 20:03 ESOPHAGUS acetaminophen [From Tylenol] AdvReac Unknown CONTRAINDICATED Verified 02/28/25 20:03 D/T LIVER ISSUES Home Medications Medication Instructions Recorded Confirmed Type albuterol sulfate 90 mcg/actuation 2 puff inhalation Q6H PRN 11/29/22 02/28/25 History aerosol inhaler Shortness Of Breath Or Wheezing cholecalciferol (vitamin D3) 125 125 mcg PO DAILY 11/29/22 02/28/25 History mcg (5,000 unit) capsule escitalopram oxalate 10 mg tablet 10 mg PO DAILY 11/29/22 02/28/25 History famotidine 20 mg tablet 20 mg PO HS 11/29/22 02/28/25 History fluticasone 100 mcg-salmeterol 50 1 inh inhalation BID 11/29/22 02/28/25 History mcg/dose blistr powdr for inhalation (Advair Diskus) gabapentin 800 mg tablet 800 mg PO TID 11/29/22 02/28/25 History glucose 4 gram chewable tablet 4 g PO Q15M PRN Hypoglycemia 11/29/22 02/28/25 History ibuprofen 800 mg tablet 800 mg PO DAILY PRN Pain 11/29/22 02/28/25 History magnesium oxide 400 mg PO DAILY 11/29/22 02/28/25 History metformin 500 mg tablet 500 mg PO BID 11/29/22 02/28/25 History pantoprazole 40 mg tablet,delayed 40 mg PO DAILY 11/29/22 02/28/25 History release quetiapine 400 mg tablet (Seroquel) 800 mg PO HS 11/29/22 02/28/25 History simvastatin 20 mg tablet (Zocor) 20 mg PO QPM 11/29/22 02/28/25 History hydroxyzine HCl 50 mg tablet 200 mg PO HS 03/09/23 02/28/25 History prochlorperazine maleate 5 mg 5 mg PO TID PRN nausea and 12/29/23 02/28/25 Rx tablet vomiting #10 tabs galcanezumab-gnlm 120 mg/mL 120 mg subcut .COMPLEX #1 mL 01/23/24 02/28/25 Rx subcutaneous pen injector (Emgality Pen) benzonatate 200 mg capsule 200 mg PO BID PRN Cough 10/16/24 02/28/25 History diphenhydramine HCl 25 mg capsule 25 mg PO TID PRN ALLERGIES 10/16/24 02/28/25 History (Allergy (diphenhydramine)) topiramate 200 mg tablet 200 mg PO BID 30 days #60 tabs 11/06/24 02/28/25 Rx lamotrigine 200 mg tablet 200 mg PO BID 30 days #60 tabs 12/18/24 02/28/25 Rx lamotrigine 25 mg tablet 50 mg (2 x 25 mg) PO BID #60 tabs 12/18/24 02/28/25 Rx clonazepam 1 mg disintegrating 1 mg PO DAILY PRN seizure activity 02/20/25 02/28/25 Rx tablet #20 tabs rizatriptan 10 mg disintegrating 10 mg PO Q2H PRN migraine headache 02/20/25 02/28/25 Rx tablet #12 tabs diazepam 5 mg/spray (0.1 mL) nasal 5 mg intranasal .COMPLEX PRN 02/28/25 02/28/25 History spray Seizure Activity dulaglutide 0.75 mg/0.5 mL 0.75 mg subcut WK 02/28/25 02/28/25 History subcutaneous pen injector (Trulicity) Patient History Medical History Morbid exogenous obesity COPD (chronic obstructive pulmonary disease) Fatty (change of) liver, not elsewhere classified Insomnia, unspecified Major depressive disorder, single episode, unspecified Unspecified osteoarthritis, unspecified site Post-traumatic stress disorder, unspecified Gastro-esophageal reflux disease without esophagitis Type 2 diabetes mellitus Surgical History S/P colonoscopy S/P hysterectomy with oophorectomy S/P dilatation and curettage S/P tonsillectomy and adenoidectomy S/P cholecystectomy Family History Father Seizure Social History Smoking Status: Current every day smoker Tobacco Type: E-cigarettes / Vaping Age Quit Using Tobacco: 36; Second Hand Exposure: Yes; Do You Dip or Chew Tobacco: No; Hx Alcohol Use: No Hx Substance Use: No Preferred Language: Bruneian Communication Ability: Effective Reference Test Clerk Required: No Beliefs That Will Affect Care: None Current Living Situation: Family current occupational status: disabled How many Children do You have: 2 Feels Safe at Home: Yes Safety Concerns: Feels Safe At This Time Assistive Devices: CPAP Exam (Neuro) Physical Exam: HEENT: normocephalic grossly Neuro: Mental: AOx4, fluent speech, normal comprehension, no apraxia, no L/R confusion, no neglect CN: PERRL, Full EOM, symmetric face, midline T/U/P, Motor: No abnormal movements, normal tone, 5/5 t/o bilaterally Coord: intact Impression: 39 yo female with seizure disorder and nonepileptic spells with breakthrough seizure likely from UTI. Recommendations: tx UTI stop keppra, no need for this med. EEG normal. f/u with Dr. Rivera as outpt routine as planned. will sign off. Chart reviewed I have spent more than 50% educating patient about potential diagnosis and neurological evaluation and coordinating care with patient's treatment team. Total time spent (including chart review and coordination of care): 45 min (this includes chart review). Results & Data Vital Signs (Past 12 Hours) Vital Signs Temp Pulse Pulse Resp BP BP Pulse Ox 03/01/25 03:22 36.6 C 75 18 100/58 L 92 03/01/25 01:16 90 03/01/25 00:45 03/01/25 00:16 03/01/25 00:01 36.7 C 16 112/74 91 02/28/25 23:03 120/84 02/28/25 23:03 90 02/28/25 22:03 80 16 02/28/25 21:33 83 13 02/28/25 21:15 95 H 21 02/28/25 21:00 88 14 92 02/28/25 20:48 85 14 92 02/28/25 20:33 84 16 95 02/28/25 20:00 88 18 103/74 95 Pulse Ox O2 Del Method O2 Del Method O2 Flow Rate 03/01/25 03:22 Room Air 03/01/25 01:16 03/01/25 00:45 91 Room Air 03/01/25 00:16 Nasal Cannula 03/01/25 00:01 Room Air 02/28/25 23:03 02/28/25 23:03 Nasal Cannula 3 02/28/25 22:03 02/28/25 21:33 02/28/25 21:15 02/28/25 21:00 02/28/25 20:48 02/28/25 20:33 02/28/25 20:00 PG Care Time/CCT Total # of Minutes Spent Total Time Spent with Patient: Total time spent is greater than 50% in coordination of care (as documented) at patient's floor/unit and/or counseling patient: Coding Level of Care Code 32839 IN/OBS CONSULT LVL 3,45M Diagnoses Seizures R56.9
[2025-03-01 08:21] LABS: iSTAT Art Bld Gas Base Excess -2.0 meg/L (-9-1.8)
--- NOTE | 2025-03-01 08:25 | XRay Report ---
XR chest 1V portable CLINICAL HISTORY: low O2 COMPARISON STUDY: 02/28/2025 FINDINGS: Heart size and pulmonary vasculature are normal. Inspiration is shallow. No consolidation o r pleural effusion seen. No pneumothorax. IMPRESSION: No acute findings. ACT 112: Negative or not required by law. Electronically signed by: Kemal Stanford M.D. 03/01/2025 8:24 AM
[2025-03-01 08:38] LABS: Hematocrit (blood only) 41.3 % (37.0-47.0); Hemoglobin 13.7 g/dl (12.0-16.0); Immature Granulocytes # (auto) 0.05 K/uL (0.01-0.20); Immature Granulocytes % (auto) 0.5 %; Mean Corpuscular Hemoglobin 28.4 pg (25.0-34.0); Mean Corpuscular Volume 85.5 fL (80.0-100.0); Platelet Count 254 K/uL (130-400); RDW Standard Deviation 38.1 fL (36.4-46.3); Red Blood Count 4.83 M/uL (4.20-5.40); White Blood Count 10.81 K/ul (4.8-10.8)
[2025-03-01 08:50] LABS: Albumin Level 3.9 gm/dl (3.4-5.0); Anion Gap 7.0 (3-11); Bilirubin,Total 0.3 mg/dl (0.2-1.0); Calcium 8.5 mg/dl (8.6-10.3); Carbon Dioxide 25.0 mmol/L (21-32); Chloride 108.0 mmol/L (98-107); Potassium 4.3 mmol/L (3.5-5.1); Sodium 140.0 mmol/L (136-145)
[2025-03-01 08:57] LABS: Alanine Aminotransferase 11.0 U/L (7-52); Albumin Globulin Ratio 1.3 (0.9-2); Alkaline Phosphatase 137.0 U/L (34-104); Blood Urea Nitrogen 12.0 mg/dl (6-23); Creatinine Clr Calc Pharmacy 148.5 ml/min; Globulin 3.0 gm/dl (2.5-4.0); Glucose 104.0 mg/dl (70-99(Fasting)); Total Protein 6.9 gm/dl (6.0-8.3)
[2025-03-01] MEDS: REMOVE NICODERM PATCH SCH (10:04)
[2025-03-01] MEDS: FLUTICASONE/VILANTEROL 100/25MCG 14 PUFFS/INHALER INH SCH (10:04)
[2025-03-01] MEDS: ESCITALOPRAM OXALATE 10 MG TAB PO SCH (10:04)
[2025-03-01] MEDS: GABAPENTIN 800 MG TAB PO SCH (10:04)
[2025-03-01] MEDS: lamoTRIgine 25 MG TAB PO SCH (10:04)
[2025-03-01] MEDS: NICOTINE 14 MG/24 HR PATCH TD SCH (10:05)
[2025-03-01] MEDS: lamoTRIgine 100 MG TAB PO SCH (10:05)
[2025-03-01] MEDS: TOPIRAMATE 100 MG TAB PO SCH (10:06)
[2025-03-01 13:15] LABS: iSTAT Art Bld Gas Base Excess -2.0 meg/L (-9-1.8); iSTAT Art Bld Gas pCO2 Correct 60 mmHg (35-46); iSTAT Art Bld Gas pH Corrected 7.240 (7.35-7.45); iSTAT Arterial Blood Gas pO2 C 63
--- NOTE | 2025-03-01 19:06 | Hospitalist Progress Note ---
Date of Service March 01, 2025 Assessment & Plan (1) Seizures: Plan: Patient has a past medical history of seizure disorder, and for which, patient received levetiracetam 2.75g IV x 1 dose (02/28/2025, 6:21pm) in [facility] ER, before continuing with her takes home-scheduled lamotrigine 250mg PO bid and topiramate 200mg PO bid, as prescribed by her Neurologist Dr. Martinez Dan. Patient does not appear to be suffering from acute, breakthrough seizures on 03/01/2025. Instead, I surmise that patient suffers from acute metabolic encephalopathy due to acute UTI. Patient received ceftriaxone 2g IV x 1 dose (02/28/2025, 8:28pm) in [facility] ER. Patient receives cefepime 2g IV q12 x 2 doses thus far (03/01/2025, 1:28am, 1:27pm). Patient will continue with cefepime 2g IV q12 x 4 more doses (03/02/2025, 1:56am, 3:01pm). Unfortunately, urine culture (02/28/2025) is contaminated with an excessive number of >3 organisms, and hence, cannot provide further guidance on antibiotic selection while patient remains in [facility]. (2) Hypoxia: Plan: cf., ABG 7.15 / 78 / 89 / 29 / O2 sat 93% on room air with FIO2 = 0.21 (03/01/2025, 8:05am). cf., ABG 7.24 / 61 / 65 / 26 / O2 sat 97% on BIPAP with FIO2 = 1.00 (03/01/2025, 10:12am). Portable CXR (02/28/2025, 6:36pm): 1. No infiltrate, effusion, cardiomegaly, pulmonary vascular congestion, or pneumothorax (by my review). Portable CXR (03/01/2025, 8:02am): 1. No infiltrate, effusion, cardiomegaly, pulmonary vascular congestion, or pneumothorax (by my review). Etiology of transient hypoxia remains unclear, but is most probably due to hypoventilation, which in turn, is due to a combination of: a. JERE. b. Obesity hypoventilation syndrome. c. Ongoing tobacco abuse with no subsequent diagnosis of COPD, not on home O2 or home steroids. At this time, I have opted to continue patient on BIPAP to mitigate hypoventilation and I will titrate patient off BIPAP NICANOR and back onto room air as patient had an initial O2 saturation of 94% on 2 liters/minute O2 via nasal cannula (02/28/2025, 5:53pm), followed by a decrease in O2 saturation to 88% on room air (02/28/2025, 6:31pm), followed by starting patient on 3 liters/minute O2 via nasal cannula and an increase in O2 saturation to 90% (02/28/2025, 11:03pm). (3) Leukocytosis: Plan: cf., WBC 13.65, N83 L11 M5 E1, Hb 13.9, MCV 86.4, MCHC 32.8, platelet 259 (02/28/2025, 6:00pm). cf., WBC 10.81, N83 L14 M2, Hb 13.7, MCV 85.5, MCHC 33.2, platelet 254 (03/01/2025, 8:21am). U/A (02/28/2025, time unknown): clear yellow, LE 2+, nitrite+, WBC 21-50, RBC 0-2, epithelial cells 0-2, bacteria 4+ Urine culture (02/28/2025): > 3 organisms Blood culture #1 (03/01/2025, 8:21am): Blood culture #2 (03/01/2025, 8:26am): Procalcitonin #1 0.05 ng/mL (02/28/2025, 6:00pm). Procalcitonin #2 0.06 ng/mL (03/01/2025, 8:21am). Lactic acid #1 0.9 mmol/L (03/01/2025, 8:21am). Etiology of acute leukocytosis is attributed to acute simple/uncomplicated UTI. Patient received ceftriaxone 2g IV x 1 dose (02/28/2025, 8:28pm) in [facility] ER. Patient receives cefepime 2g IV q12 x 2 doses thus far (03/01/2025, 1:28am, 1:27pm). Patient will continue with cefepime 2g IV q12 x 4 more doses (03/02/2025, 1:56am, 3:01pm). Unfortunately, urine culture (02/28/2025) is contaminated with an excessive numb er of >3 organisms, and hence, cannot provide further guidance on antibiotic selection while patient remains in [facility]. I will check vitals, genito-urinary exam, neuro exam, WBC w/diff, lactic acid, and procalcitonin level in the 03/02/2025 am. Plan addendum - UA returned suspicious for UTI. Will transition coverage to cef epime given DM history. Follow urine cultures. Patient is a 39-year-old female with past medical history of seizure disorder, obesity with a BMI of 49, COPD, fatty liver disease, type II DM, GERD, depression. Patient presented via EMS after 3 seizures at home; the first 1 was at home and her family used her rescue diazepam intranasal spray (5 mg/spray), 2 were witnessed by EMS (one lasted 3 minutes reportedly, the second lasted reportedly 30 seconds). she was given Keppra 275 mg IV in the ED and is being admitted for further seizure workup. #Seizures - history of seizure disorder (nonepileptic and epileptic) with recent increase in seizures, 3 reported seizures 02/28. Head CT and CTAs negative for acute changes. BSG 83, WBC 13.65, CXR negative for acute changes, electrolytes and renal function stable. ESR 35, procalcitonin 0.05, prolactin 17.78. - MRI brain and EEG ordered - consult neurology - 2750 mg IV Keppra in ED; start 500mg BID tomorrow - continue lamotrigine 250 mg twice daily and Topiramate 200 mg twice daily as usual Given Decadron 10 mg IV in the ED, defer further steroid use as no acute indication at time of admission Seizure precautions - monitor on telemetry Trend CBC and CMP - patient's outpatient neurologist has been discussing decreasing home Seroquel as it reduces seizure threshold, will defer at this time however could consider #Hypoxianoted to be 88% in room air in the ED. CXR negative for acute changes, lungs clear bilaterally at time of admission, patient denies any vomiting at t salvador of event, low concern for aspiration. Likely component of obesity hypoventilation syndrome with sedating agents. Wean oxygen as tolerated Incentive spirometry #LeukocytosisWBC 13.6 by the time of admission. CXR negative for acute infection. Patient denies any fevers, chills, GI symptoms, dysuria. Empirically given Rocephin 2G IV in the ED, defer further ABX use UA ordered Trend CBC #Type II DMhold metformin. Defer SSI once medically becomes required. Continue gabapentin for neuropathy #nicotine usevapes at baseline. Nicotine patch ordered Encourage smoking cessation #Mental healthcontinue Lexapro and Seroquel #GERDcontinue famotidine and pantoprazole VTE ppx: SCDs, low risk Dispo: PCU Admission and Anticipated Discharge Date Admission Date: February 28, 2025 Subjective "I I I I." Review of Systems Constitutional: Negative for antecedent/coincident fevers, chills, diaphoresis, cough, wheeze, sore throat, hemoptysis, shortness of breath, dyspnea on exertion, chest pains, palpitations, pleurisy, nausea, vomiting, diarrhea, abdominal pain, pelvic pain, hematemesis, hematochezia, melena, hematuria, dysuria, frequency, urgency, flank pain, headaches, dizziness, lightheadedness, visual changes, hearing changes, weakness, falls, syncope, trauma, travel history, sick contacts, or food/drug ingestions novel or new. All other review of systems are reported as negative by the patient on 03/01/2025. Physical Exam Constitutional: General: Comfortable, uncooperative, incoherent. Confused, lethargic, and obtunded. Patient speaks in 1-4 word sentences slowly, but clearly. HEENT: Normocephalic, atraumatic. Extra-ocular muscles intact. Pupils equally round and reactive to light. No nystagmus, gaze paresis, anisocoria, miosis, mydriasis, hyphema, chemosis, scleral injection, conjunctivitis, or pterygium. No otorrhea or rhinorrhea. No pharyngeal discharge or exudate. Neck: Supple, no stridor or bruit. Jugular venous pressure is estimated to be 3 cm above the sternal angle of Lui, which is, by definition, 5 cm above the level of the right atrium. Hence, jugular venous pressure of 8 cm is not elevated on 03/01/2025. Lymphatics: No anterior/posterior cervical, infraclavicular, supraclavicular, axillary, epitrochlear, or inguinal adenopathy. Chest: Symmetric rise and fall with respirations. Non-tender to palpation. Lungs: Clear to auscultation and percussion. No audible expiratory wheeze, egophony, pectoriloquy, increase in tactile fremitus, or flatness/dullness to percussion at the bases. Heart: Regular rate and rhythm. S1 and S2 noted. No S3 or S4 summation gallop. No tripartite friction rub. Grade II/ early systolic murmur at left lower sternal border without radiation to the carotids, axilla, or back, and which remains invariant in regards to the respiratory cycle. Abdomen: Soft, non-tender, non-distended. No rebound, guarding, Merchant's sign, or organomegaly. Bowel sounds auscultated in all 4 quadrants. Extremities: No clubbing, cyanosis, or edema. 2+ pedal pulses bilaterally. Skin: No decubitus ulcer, exanthem, or enanthem. Urology: No evans catheter. No purewick. No urethral discharge. Neurology: No myoclonus, tremors, or tics. Intermittent, sinuous, and parallel movements of the hands/arms. Psychiatry: No flat affect. No monotone voice. Smiles appropriately. Results & Data Results & Data Vital Signs (Past 12 Hours) Vital Signs Temp Pulse Pulse Resp BP Pulse Ox O2 Del Method 03/01/25 15:59 36.3 C L 80 18 100/68 99 BiPAP 03/01/25 15:54 77 20 96 03/01/25 15:40 86 03/01/25 12:07 86 20 97 03/01/25 11:07 36.4 C L 82 20 137/81 98 BiPAP 03/01/25 08:30 BiPAP 03/01/25 08:13 94 H 21 100 03/01/25 07:44 36.7 C 96 H 18 112/75 94 Room Air FiO2 03/01/25 15:59 03/01/25 15:54 40 03/01/25 15:40 03/01/25 12:07 40 03/01/25 11:07 03/01/25 08:30 30 03/01/25 08:13 30 03/01/25 07:44 Laboratory Results WBC 13.65, N83 L11 M5 E1, Hb 13.9, MCV 86.4, MCHC 32.8, platelet 259 (02/28/2025, 6:00pm). WBC 10.81, N83 L14 M2, Hb 13.7, MCV 85.5, MCHC 33.2, platelet 254 (03/01/2025, 8:21am). U/A (02/28/2025, time unknown): clear yellow, LE 2+, nitrite+, WBC 21-50, RBC 0-2, epithelial cells 0-2, bacteria 4+ Urine culture (02/28/2025): > 3 organisms Blood culture #1 (03/01/2025, 8:21am): Blood culture #2 (03/01/2025, 8:26am): Procalcitonin #1 0.05 ng/mL (02/28/2025, 6:00pm). Procalcitonin #2 0.06 ng/mL (03/01/2025, 8:21am). Lactic acid #1 0.9 mmol/L (03/01/2025, 8:21am). ABG 7.15 / 78 / 89 / 29 / O2 sat 93% on room air with FIO2 = 0.21 (03/01/2025, 8:05am). ABG 7.24 / 61 / 65 / 26 / O2 sat 97% on BIPAP with FIO2 = 1.00 (03/01/2025, 10:12am). Na 140, K 4.2, BUN 12, creatinine 0.72, glucose 115, Ca 8.5, Mg 1.8, AST 9, ALT 10, ALK PHOS 131, TBili 0.2 (03/01/2025, 5:38am). Na 140, K 4.3, BUN 12, creatinine 0.73, glucose 104, Ca 8.5, AST 10, ALT 11, ALK PHOS 137, TBili 0.3 (03/01/2025, 8:21am). Prolactin #1 17.78 ng/mL (03/01/2025, 6:00pm). Prolactin #2 13.53 ng/mL (03/01/2025, 8:21am). Diagnostic Findings CT brain without IV contrast (02/28/2025, 6:11pm): 1. No acute bleed, mass, or midline shift. CTA neck (02/28/2025, 6:11pm): 1. No stenosis is seen of the common carotid arteries bilaterally. The carotid bulbs appear normal. The remainder of the internal carotid arteries appear patent bilaterally. No stenosis of the external carotid arteries is seen 2. The vertebral arteries are patent bilaterally with no significant stenosis seen. 3. The visualized thoracic aorta appears unremarkable CTA head (02/28/2025, 6:11pm): 1. No definite stenosis or aneurysm of the intracranial arteries Portable CXR (02/28/2025, 6:36pm): 1. No infiltrate, effusion, cardiomegaly, pulmonary vascular congestion, or pneumothorax (by my review). MRI brain without IV contrast (02/28/2025, 9:28pm): 1. No acute ischemia, space-occupying mass, or other acute intracranial pathology is demonstrated. 2. Mild [id number] asymmetry of hippocampal volume, slightly lesser in volume on the right side. Stable. Portable CXR (03/01/2025, 8:02am): 1. No infiltrate, effusion, cardiomegaly, pulmonary vascular congestion, or pneumothorax (by my review). PG Care Time/CCT Total # of Minutes Spent Total Time Spent with Patient: Total time spent is greater than 50% in coordination of care (as documented) at patient's floor/unit and/or counseling patient: Coding Level of Care Code 62705 SUB INP/OBS CARE 2/35MIN Diagnoses Seizures R56.9 Hypoxia R09.02 Leukocytosis D72.829
[2025-03-01] MEDS: SIMVASTATIN 20 MG TAB PO SCH (20:14)
[2025-03-01] MEDS: MELATONIN 3 MG TAB PO PRN (20:16)
[2025-03-01] MEDS: FAMOTIDINE 20 MG TAB PO SCH (20:16)
--- NOTE | 2025-03-02 05:35 | Electrocardiogram Report ---
Test Reason : Blood Pressure : */* mmHG Vent. Rate : 93 BPM Atrial Rate : 93 BPM P-R Int : 170 ms QRS Dur : 100 ms QT Int : 476 ms P-R-T Axes : 59 112 11 degrees QTcB Int : 591 ms Normal sinus rhythm Left posterior fascicular block Nonspecific T wave abnormality Abnormal ECG No previous ECGs available Confirmed by Carlos Latif ([id number]) on 03/02/2025 5:35:13 AM Referred By: REFERRED SELF Confirmed By: Carlos Latif
--- NOTE | 2025-03-02 16:28 | Hospitalist Progress Note ---
Date of Service March 02, 2025 Assessment & Plan (1) Seizures: Plan: Patient has a past medical history of seizure disorder, and for which, patient received levetiracetam 2.75g IV x 1 dose (02/28/2025, 6:21pm) in [facility] ER, before continuing with her takes home-scheduled lamotrigine 250mg PO bid and topiramate 200mg PO bid, as prescribed by her Neurologist Dr. Martinez Dan. Patient does not appear to be suffering from acute, breakthrough seizures on 03/01/2025. Instead, I surmise that patient suffers from acute metabolic encephalopathy due to acute UTI. Patient received ceftriaxone 2g IV x 1 dose (02/28/2025, 8:28pm) in [facility] ER. Patient receives cefepime 2g IV q12 x 2 doses thus far (03/01/2025, 1:28am, 1:27pm). Patient will continue with cefepime 2g IV q12 x 4 more doses (03/02/2025, 1:56am, 3:01pm). Unfortunately, urine culture (02/28/2025) is contaminated with an excessive number of >3 organisms, and hence, cannot provide further guidance on antibiotic selection while patient remains in [facility]. (2) Hypoxia: Plan: cf., ABG 7.15 / 78 / 89 / 29 / O2 sat 93% on room air with FIO2 = 0.21 (03/01/2025, 8:05am). cf., ABG 7.24 / 61 / 65 / 26 / O2 sat 97% on BIPAP with FIO2 = 1.00 (03/01/2025, 10:12am). Portable CXR (02/28/2025, 6:36pm): 1. No infiltrate, effusion, cardiomegaly, pulmonary vascular congestion, or pneumothorax (by my review). Portable CXR (03/01/2025, 8:02am): 1. No infiltrate, effusion, cardiomegaly, pulmonary vascular congestion, or pneumothorax (by my review). Etiology of transient hypoxia remains unclear, but is most probably due to hypoventilation, which in turn, is due to a combination of: a. JERE. b. Obesity hypoventilation syndrome. c. Ongoing tobacco abuse with no subsequent diagnosis of COPD, not on home O2 or home steroids. On 03/01/2025, I opted to continue patient on BIPAP to mitigate hypoventilation and titrate patient off BIPAP NICANOR and back onto room air as patient had an initial O2 saturation of 94% on 2 liters/minute O2 via nasal cannula (02/28/2025, 5:53pm), followed by a decrease in O2 saturation to 88% on room air (02/28/2025, 6:31pm), followed by starting patient on 3 liters/minute O2 via nasal cannula and an increase in O2 saturation to 90% (02/28/2025, 11:03pm). On 03/02/2025, patient breathes very comfortably on 3 liters/minute O2 via nasal cannula. I have opted to continue patient on 3 liters/minute O2 via nasal cannula on 03/02/2025, and will titrate patient back onto room air in the 03/03/2025 am. (3) Leukocytosis: Plan: cf., WBC 13.65, N83 L11 M5 E1, Hb 13.9, MCV 86.4, MCHC 32.8, platelet 259 (02/28/2025, 6:00pm). cf., WBC 10.81, N83 L14 M2, Hb 13.7, MCV 85.5, MCHC 33.2, platelet 254 (03/01/2025, 8:21am). U/A (02/28/2025, time unknown): clear yellow, LE 2+, nitrite+, WBC 21-50, RBC 0-2, epithelial cells 0-2, bacteria 4+ Urine culture (02/28/2025): > 3 organisms Blood culture #1 (03/01/2025, 8:21am): Blood culture #2 (03/01/2025, 8:26am): Procalcitonin #1 0.05 ng/mL (02/28/2025, 6:00pm). Procalcitonin #2 0.06 ng/mL (03/01/2025, 8:21am). Lactic acid #1 0.9 mmol/L (03/01/2025, 8:21am). Etiology of acute leukocytosis is attributed to acute simple/uncomplicated UTI. Patient received ceftriaxone 2g IV x 1 dose (02/28/2025, 8:28pm) in [facility] ER. Patient receives cefepime 2g IV q12 x 2 doses thus far (03/01/2025, 1:28am, 1:27pm). Patient will continue with cefepime 2g IV q12 x 4 more doses (03/02/2025, 1:56am, 3:01pm). Unfortunately, urine culture (02/28/2025) is contaminated with an excessive number of >3 organisms, and hence, cannot provide further guidance on antibiotic selection while patient remains in [facility]. I will check vitals, genito-urinary exam, neuro exam, WBC w/diff, lactic acid, and procalcitonin level in the 03/03/2025 am. Plan addendum - UA returned suspicious for UTI. Will transition coverage to cefepime given DM history. Follow urine cultures. Patient is a 39-year-old female with past medical history of seizure disorder, obesity with a BMI of 49, COPD, fatty liver disease, type II DM, GERD, depression. Patient presented via EMS after 3 seizures at home; the first 1 was at home and her family used her rescue diazepam intranasal spray (5 mg/spray), 2 were witnessed by EMS (one lasted 3 minutes reportedly, the second lasted reportedly 30 seconds). she was given Keppra 275 mg IV in the ED and is being admitted for further seizure workup. #Seizures - history of seizure disorder (nonepileptic and epileptic) with recent increase in seizures, 3 reported seizures 02/28. Head CT and CTAs negative for acute changes. BSG 83, WBC 13.65, CXR negative for acute changes, electrolytes and renal function stable. ESR 35, procalcitonin 0.05, prolactin 17.78. - MRI brain and EEG ordered - consult neurology - 2750 mg IV Keppra in ED; start 500mg BID tomorrow - continue lamotrigine 250 mg twice daily and Topiramate 200 mg twice daily as usual Given Decadron 10 mg IV in the ED, defer further steroid use as no acute indication at time of admission Seizure precautions - monitor on telemetry Trend CBC and CMP - patient's outpatient neurologist has been discussing decreasing home Seroquel as it reduces seizure threshold, will defer at this time however could consider #Hypoxianoted to be 88% in room air in the ED. CXR negative for acute changes, lungs clear bilaterally at time of admission, patient denies any vomiting at time of event, low concern for aspiration. Likely component of obesity hypoventilation syndrome with sedating agents. Wean oxygen as tolerated Incentive spirometry #LeukocytosisWBC 13.6 by the time of admission. CXR negative for acute infection. Patient denies any fevers, chills, GI symptoms, dysuria. Empirically given Rocephin 2G IV in the ED, defer further ABX use UA ordered Trend CBC #Type II DMhold metformin. Defer SSI once medically becomes required. Continue gabapentin for neuropathy #nicotine usevapes at baseline. Nicotine patch ordered Encourage smoking cessation #Mental healthcontinue Lexapro and Seroquel #GERDcontinue famotidine and pantoprazole VTE ppx: SCDs, low risk Dispo: PCU Admission and Anticipated Discharge Date Admission Date: February 28, 2025 Subjective "I feel a lot better today (03/02/2025) than yesterday (03/01/2025). I felt so off yesterday (03/01/2025). The antibiotics are helping me a lot. Thanks!" Review of Systems Constitutional: Negative for antecedent/coincident fevers, chills, diaphoresis, cough, wheeze, sore throat, hemoptysis, shortness of breath, dyspnea on exertion, chest pains, palpitations, pleurisy, nausea, vomiting, diarrhea, abdominal pain, pelvic pain, hematemesis, hematochezia, melena, hematuria, dysuria, frequency, urgency, flank pain, headaches, dizziness, lightheadedness, visual changes, hearing changes, weakness, falls, syncope, trauma, travel history, sick contacts, or food/drug ingestions novel or new. All other review of systems are reported as negative by the patient on 03/02/2025. Physical Exam Constitutional: General: Comfortable, cooperative, coherent. Wide awake and alert. Not confused, lethargic, or obtunded. Patient speaks in complete, fluent, and articulate paragraphs without pause, interruption, cough, or wheeze. HEENT: Normocephalic, atraumatic. Extra-ocular muscles intact. Pupils equally round and reactive to light. No nystagmus, gaze paresis, anisocoria, miosis, mydriasis, hyphema, chemosis, scleral injection, conjunctivitis, or pterygium. No otorrhea or rhinorrhea. No pharyngeal discharge or exudate. Neck: Supple, no stridor or bruit. Jugular venous pressure is estimated to be 3 cm above the sternal angle of Lui, which is, by definition, 5 cm above the level of the right atrium. Hence, jugular venous pressure of 8 cm is not elevated on 03/02/2025. Lymphatics: No anterior/posterior cervical, infraclavicular, supraclavicular, axillary, epitrochlear, or inguinal adenopathy. Chest: Symmetric rise and fall with respirations. Non-tender to palpation. Lungs: Clear to auscultation and percussion. No audible expiratory wheeze, egophony, pectoriloquy, increase in tactile fremitus, or flatness/dullness to percussion at the bases. Heart: Regular rate and rhythm. S1 and S2 noted. No S3 or S4 summation gallop. No tripartite friction rub. Grade II/ early systolic murmur at left lower sternal border without radiation to the carotids, axilla, or back, and which remains invariant in regards to the respiratory cycle. Abdomen: Soft, non-tender, non-distended. No rebound, guarding, Merchant's sign, or organomegaly. Bowel sounds auscultated in all 4 quadrants. Extremities: No clubbing, cyanosis, or edema. 2+ pedal pulses bilaterally. Skin: No decubitus ulcer, exanthem, or enanthem. Urology: No evans catheter. No purewick. No urethral discharge. Neurology: Alert and oriented in regards to person, place, time, and situation. No myoclonus, tremors, or tics. DTR+. 5/5 motor strength in all 4 extremities, both proximally and distally. Intermittent, sinuous, and parallel movements of the hands/arms present on 03/01/2025 am, NOT present at all on 03/02/2025 am. Psychiatry: No flat affect. No monotone voice. Smiles appropriately. Results & Data Results & Data Vital Signs (Past 12 Hours) Vital Signs Temp Pulse Pulse Resp BP Pulse Ox O2 Del Method 03/02/25 13:07 88 03/02/25 11:59 36.6 C 93 H 20 98/65 L 92 Nasal Cannula 03/02/25 08:08 36.5 C 93 H 18 90/54 L 94 Room Air 03/02/25 08:00 03/02/25 04:43 36.6 C 76 18 113/79 96 Room Air O2 Del Method O2 Flow Rate 03/02/25 13:07 03/02/25 11:59 2 03/02/25 08:08 03/02/25 08:00 Room Air 03/02/25 04:43 Laboratory Results WBC 13.65, N83 L11 M5 E1, Hb 13.9, MCV 86.4, MCHC 32.8, platelet 259 (02/28/2025, 6:00pm). WBC 10.81, N83 L14 M2, Hb 13.7, MCV 85.5, MCHC 33.2, platelet 254 (03/01/2025, 8:21am). U/A (02/28/2025, time unknown): clear yellow, LE 2+, nitrite+, WBC 21-50, RBC 0-2, epithelial cells 0-2, bacteria 4+ Urine culture (02/28/2025): > 3 organisms Blood culture #1 (03/01/2025, 8:21am): Blood culture #2 (03/01/2025, 8:26am): Procalcitonin #1 0.05 ng/mL (02/28/2025, 6:00pm). Procalcitonin #2 0.06 ng/mL (03/01/2025, 8:21am). Lactic acid #1 0.9 mmol/L (03/01/2025, 8:21am). ABG 7.15 / 78 / 89 / 29 / O2 sat 93% on room air with FIO2 = 0.21 (03/01/2025, 8:05am). ABG 7.24 / 61 / 65 / 26 / O2 sat 97% on BIPAP with FIO2 = 1.00 (03/01/2025, 10:12am). Na 140, K 4.2, BUN 12, creatinine 0.72, glucose 115, Ca 8.5, Mg 1.8, AST 9, ALT 10, ALK PHOS 131, TBili 0.2 (03/01/2025, 5:38am). Na 140, K 4.3, BUN 12, creatinine 0.73, glucose 104, Ca 8.5, AST 10, ALT 11, ALK PHOS 137, TBili 0.3 (03/01/2025, 8:21am). Prolactin #1 17.78 ng/mL (03/01/2025, 6:00pm). Prolactin #2 13.53 ng/mL (03/01/2025, 8:21am). Diagnostic Findings CT brain without IV contrast (02/28/2025, 6:11pm): 1. No acute bleed, mass, or midline shift. CTA neck (02/28/2025, 6:11pm): 1. No stenosis is seen of the common carotid arteries bilaterally. The carotid bulbs appear normal. The remainder of the internal carotid arteries appear patent bilaterally. No stenosis of the external carotid arteries is seen 2. The vertebral arteries are patent bilaterally with no significant stenosis seen. 3. The visualized thoracic aorta appears unremarkable CTA head (02/28/2025, 6:11pm): 1. No definite stenosis or aneurysm of the intracranial arteries Portable CXR (02/28/2025, 6:36pm): 1. No infiltrate, effusion, cardiomegaly, pulmonary vascular congestion, or pneumothorax (by my review). MRI brain without IV contrast (02/28/2025, 9:28pm): 1. No acute ischemia, space-occupying mass, or other acute intracranial pathology is demonstrated. 2. Mild [id number] asymmetry of hippocampal volume, slightly lesser in volume on the right side. Stable. Portable CXR (03/01/2025, 8:02am): 1. No infiltrate, effusion, cardiomegaly, pulmonary vascular congestion, or pneumothorax (by my review). PG Care Time/CCT Total # of Minutes Spent Total Time Spent with Patient: Total time spent is greater than 50% in coordination of care (as documented) at patient's floor/unit and/or counseling patient: Coding Level of Care Code 23877 SUB INP/OBS CARE 2/35MIN Diagnoses Seizures R56.9 Hypoxia R09.02 Leukocytosis D72.829
[2025-03-02 16:43] LABS: Hematocrit (blood only) 37.8 % (37.0-47.0); Hemoglobin 12.5 g/dl (12.0-16.0); Immature Granulocytes # (auto) 0.03 K/uL (0.01-0.20); Immature Granulocytes % (auto) 0.4 %; Mean Corpuscular Hemoglobin 28.0 pg (25.0-34.0); Mean Corpuscular Volume 84.8 fL (80.0-100.0); Platelet Count 246 K/uL (130-400); RDW Standard Deviation 38.1 fL (36.4-46.3); Red Blood Count 4.46 M/uL (4.20-5.40); White Blood Count 6.86 K/ul (4.8-10.8)
[2025-03-03 03:56] VITALS: TEMP 97.5
[2025-03-03 06:32] LABS: Hematocrit (blood only) 36.9 % (37.0-47.0); Hemoglobin 12.6 g/dl (12.0-16.0); Immature Granulocytes # (auto) 0.03 K/uL (0.01-0.20); Immature Granulocytes % (auto) 0.5 %; Mean Corpuscular Hemoglobin 29.2 pg (25.0-34.0); Mean Corpuscular Volume 85.6 fL (80.0-100.0); Platelet Count 252 K/uL (130-400); RDW Standard Deviation 38.7 fL (36.4-46.3); Red Blood Count 4.31 M/uL (4.20-5.40); White Blood Count 5.71 K/ul (4.8-10.8)
[2025-03-03 10:48] VITALS: BP 102/62; RESP 17; O2SAT 91
[2025-03-03 12:05] VITALS: PULSE 79
--- NOTE | 2025-03-03 12:17 | Discharge Summary ---
Discharge Summary Date of Service March 03, 2025 Principal Dx & Hospital Course #1 = Principal Diagnosis (1) Seizures: Patient has a past medical history of seizure disorder, and for which, patient received levetiracetam 2.75g IV x 1 dose (02/28/2025, 6:21pm) in [facility], before continuing with her takes home-scheduled lamotrigine 250mg PO bid and topiramate 200mg PO bid, as prescribed by her Neurologist Dr. Martinez Dan. Patient did not appear to be suffering from acute, breakthrough seizures on 03/01/2025. Instead, I surmised that patient suffered from acute metabolic encephalopathy due to acute UTI. Patient received ceftriaxone 2g IV x 1 dose (02/28/2025, 8:28pm) in [facility] ER. Patient received cefepime 2g IV q12 x 5 doses (03/01/2025, 1:28am, 1:27pm; 03/02/2025, 1:56am, 3:01pm; 03/03/2025, 2:13am). Patient received cefuroxime 500mg PO x 1 dose (03/03/2025, 9:58am) to conclude a total 3 days long course of parenteral and oral antibiotic therapy for a presumed acute UTI. Of note, urine culture (02/28/2025) is contaminated with an excessive number of >3 organisms, and hence, could not provide further guidance on antibiotic selection while patient remained in [facility]. Of note, patient has no complaints of confusion, lethargy, obtundation, fevers, chills, diaphoresis, nausea, vomiting, diarrhea, dysuria, hematuria, frequency, urgency, flank pain, abdominal pain, or pelvic pain to suggest acute UTI on discharge date 03/03/2025. Of final note, patient will continue to receive uninterrupted her home-scheduled lamotrigine 250mg PO bid and topiramate 200mg PO bid, as prescribed by her Neurologist Dr. Martinez Dan, on hospital discharge back to her home on 03/03/2025. (2) Hypoxia: cf., ABG 7.15 / 78 / 89 / 29 / O2 sat 93% on room air with FIO2 = 0.21 (03/01/2025, 8:05am). cf., ABG 7.24 / 61 / 65 / 26 / O2 sat 97% on BIPAP with FIO2 = 1.00 (03/01/2025, 10:12am). Portable CXR (02/28/2025, 6:36pm): 1. No infiltrate, effusion, cardiomegaly, pulmonary vascular congestion, or pneumothorax (by my review). Portable CXR (03/01/2025, 8:02am): 1. No infiltrate, effusion, cardiomegaly, pulmonary vascular congestion, or pneumothorax (by my review). Etiology of transient hypoxia remains unclear, but was most probably due to hypoventilation, which in turn, was due to a combination of: a. JERE. b. Obesity hypoventilation syndrome. c. Ongoing tobacco abuse with no subsequent diagnosis of COPD, not on home O2 or home steroids. On 03/01/2025, I opted to continue patient on BIPAP to mitigate hypoventilation and titrated patient off BIPAP and back onto room air as patient had an initial O2 saturation of 94% on 2 liters/minute O2 via nasal cannula (02/28/2025, 5:53pm), followed by a decrease in O2 saturation to 88% on room air (02/28/2025, 6:31pm), followed by starting patient on 3 liters/minute O2 via nasal cannula and an increase in O2 saturation to 90% (02/28/2025, 11:03pm). On 03/02/2025, patient breathed very comfortably on 3 liters/minute O2 via nasal cannula with an O2 saturation of 94% (03/02/2025, 8:08am). I opted to continue patient on 3 liters/minute O2 via nasal cannula on 03/02/2025, and titrated patient back onto room air in the 03/03/2025 am. On 03/03/2025, patient breathed very comfortably on room air with a discharge O2 saturation of 91% (03/03/2025, 12:04pm). Of final note, patient was advised to follow up with her PCP Dr. Mookie Regan within 5-7 days of hospital discharge to arrange for home CPAP to treat JERE. To address obesity hypoventilation syndrome, patient was advised to lose weight as obesity hypoventilation syndrome is caused directly by obesity. To address ongoing tobacco abuse, patient was advised to quit smoking tobacco immediately and permanently. (3) Leukocytosis: cf., WBC 13.65, N83 L11 M5 E1 (02/28/2025, 6:00pm). cf., WBC 10.81, N83 L14 M2 (03/01/2025, 8:21am). cf., WBC 5.71, N63 L27 M8 E2 B1 (03/03/2025, 5:57am) U/A (02/28/2025, time unknown): clear yellow, LE 2+, nitrite+, WBC 21-50, RBC 0-2, epithelial cells 0-2, bacteria 4+ Urine culture (02/28/2025): > 3 organisms Blood culture #1 (03/01/2025, 8:21am): Blood culture #2 (03/01/2025, 8:26am): Procalcitonin #1 0.05 ng/mL (02/28/2025, 6:00pm). Procalcitonin #2 0.06 ng/mL (03/01/2025, 8:21am). Procalcitonin #3 0.02 ng/mL (03/02/2025, 4:26pm). Procalcitonin #4 < 0.02 ng/mL (03/03/2025, 5:57am). Lactic acid #1 0.9 mmol/L (03/01/2025, 8:21am). Lactic acid #2 0.6 mmol/L (03/02/2025, 4:26pm). Lactic acid #3 0.7 mmol/L (03/03/2025, 5:57am). Etiology of acute leukocytosis is attributed to acute simple/uncomplicated UTI. Patient received ceftriaxone 2g IV x 1 dose (02/28/2025, 8:28pm) in [facility] ER. Patient received cefepime 2g IV q12 x 5 doses (03/01/2025, 1:28am, 1:27pm; 03/02/2025, 1:56am, 3:01pm; 03/03/2025, 2:13am). Patient received cefuroxime 500mg PO x 1 dose (03/03/2025, 9:58am) to conclude a total 3 days long course of parenteral and oral antibiotic therapy for a presumed acute UTI. Of note, urine culture (02/28/2025) is contaminated with an excessive number of >3 organisms, and hence, could not provide further guidance on antibiotic selection while patient remained in [facility]. Of note, patient has no complaints of confusion, lethargy, obtundation, fevers, chills, diaphoresis, nausea, vomiting, diarrhea, dysuria, hematuria, frequency, urgency, flank pain, abdominal pain, or pelvic pain to suggest acute UTI on discharge date 03/03/2025. Plan addendum - UA returned suspicious for UTI. Will transition coverage to cefepime given DM history. Follow urine cultures. Patient is a 39-year-old female with past medical history of seizure disorder, obesity with a BMI of 49, COPD, fatty liver disease, type II DM, GERD, depression. Patient presented via EMS after 3 seizures at home; the first 1 was at home and her family used her rescue diazepam intranasal spray (5 mg/spray), 2 were witnessed by EMS (one lasted 3 minutes reportedly, the second lasted reportedly 30 seconds). she was given Keppra 275 mg IV in the ED and is being admitted for further seizure workup. #Seizures - history of seizure disorder (nonepileptic and epileptic) with recent increase in seizures, 3 reported seizures 02/28. Head CT and CTAs negative for acute changes. BSG 83, WBC 13.65, CXR negative for acute changes, electrolytes and renal function stable. ESR 35, procalcitonin 0.05, prolactin 17.78. - MRI brain and EEG ordered - consult neurology - 2750 mg IV Keppra in ED; start 500mg BID tomorrow - continue lamotrigine 250 mg twice daily and Topiramate 200 mg twice daily as usual Given Decadron 10 mg IV in the ED, defer further steroid use as no acute i ndication at time of admission Seizure precautions - monitor on telemetry Trend CBC and CMP - patient's outpatient neurologist has been discussing decreasing home Seroquel as it reduces seizure threshold, will defer at this time however could consider #Hypoxianoted to be 88% in room air in the ED. CXR negative for acute changes, lungs clear bilaterally at time of admission, patient denies any vomiting at time of event, low concern for aspiration. Likely component of obesity hypoventilation syndrome with sedating agents. Wean oxygen as tolerated Incentive spirometry #LeukocytosisWBC 13.6 by the time of admission. CXR negative for acute infection. Patient denies any fevers, chills, GI symptoms, dysuria. Empirically given Rocephin 2G IV in the ED, defer further ABX use UA ordered Trend CBC #Type II DMhold metformin. Defer SSI once medically becomes required. Continue gabapentin for neuropathy #nicotine usevapes at baseline. Nicotine patch ordered Encourage smoking cessation #Mental healthcontinue Lexapro and Seroquel #GERDcontinue famotidine and pantoprazole VTE ppx: SCDs, low risk Dispo: PCU Admission HPI Per Admitting Provider Patient is a 39-year-old female with past medical history of seizure disorder, obesity with a BMI of 49, COPD, fatty liver disease, type II DM, GERD, depression. Patient presented via EMS after 3 seizures at home; the first 1 was at home and her family used her rescue diazepam intranasal spray (5 mg/spray), 2 were witnessed by EMS (one lasted 3 minutes reportedly, the second lasted reportedly 30 seconds). she was given Keppra 275 mg IV in the ED and is being admitted for further seizure workup. Patient seen at bedside. She is tired however responds to verbal stimuli after Keppra in the ED. She stated she felt weird/flushed which she typically feels prior to her seizure and had a seizure at home with her family. She is unaware of what is happening during the seizure and is unsure of how long the first one lasted however stated her family did use her intranasal diazepam spray. En route with EMS she reportedly had 2 witnessed seizures, the first lasting 3 minutes, the second lasting 30 seconds in which she did not fully wake up from and was reportedly flaccid. Patient is alert and oriented at time of admission. She stated she took her home medications as she usual, reviewed neurology records which show lamotrigine increased from 200 mg twice daily to 225 mg twice daily 12/18. Neurologist recommended MRI and EEG at this time however has not yet been completed. I will just also mention decreasing Seroquel as it lowers her seizure threshold however held off at this time. Patient currently just has a headache in her right eye which is typical with all of her seizures. She also complains of right arm numbness which has been present since she had COVID in 2020. She denies any dizziness, lightheadedness, chest pain, shortness of breath, abdominal pain, nausea, vomiting, diarrhea. She does report difficulty urinating at home due to difficulty with ambulation, denies any dysuria. She de nies any vomiting during the seizure today. She does endorse vaping use and would like a nicotine patch, ordered. She denies any alcohol use or illicit drug use. She does not use any oxygen at baseline however was noted to be 88% on room air in the ED and is currently on 2L NC. She took all of her medications today as usual. She wishes to be full code. patient noted that she previously went to [facility] about 1 year ago and reportedly was diagnosed with a 2 mm brain aneurysm however not noted on diagnostic imaging today. Discussion with the ER staff who spoke with on-call neurologist. Reportedly no need for continuous EEG monitoring. Discussion with pharmacy staff regarding continuation of Keppra given patient's elevated BMIstudies revealed psych to continue with Keppra 500 mg twice daily with gradual increase to 1500 mg twice daily. Discharge Exam Constitutional General: Comfortable, cooperative, coherent. Wide awake and alert. Not confused, lethargic, or obtunded. Patient speaks in complete, fluent, and articulate paragraphs without pause, interruption, cough, or wheeze. HEENT: Normocephalic, atraumatic. Extra-ocular muscles intact. Pupils equally round and reactive to light. No nystagmus, gaze paresis, anisocoria, miosis, mydriasis, hyphema, chemosis, scleral injection, conjunctivitis, or pterygium. No otorrhea or rhinorrhea. No pharyngeal discharge or exudate. Neck: Supple, no stridor or bruit. Jugular venous pressure is estimated to be 3 cm above the sternal angle of Lui, which is, by definition, 5 cm above the level of the right atrium. Hence, jugular venous pressure of 8 cm is not elevated on 03/02/2025. Lymphatics: No anterior/posterior cervical, infraclavicular, supraclavicular, axillary, epitrochlear, or inguinal adenopathy. Chest: Symmetric rise and fall with respirations. Non-tender to palpation. Lungs: Clear to auscultation and percussion. No audible expiratory wheeze, egophony, pectoriloquy, increase in tactile fremitus, or flatness/dullness to percussion at the bases. Heart: Regular rate and rhythm. S1 and S2 noted. No S3 or S4 summation gallop. No tripartite friction rub. Grade II/ early systolic murmur at left lower sternal border without radiation to the carotids, axilla, or back, and which remains invariant in regards to the respiratory cycle. Abdomen: Soft, non-tender, non-distended. No rebound, guarding, Merchant's sign, or organomegaly. Bowel sounds auscultated in all 4 quadrants. Extremities: No clubbing, cyanosis, or edema. 2+ pedal pulses bilaterally. Skin: No decubitus ulcer, exanthem, or enanthem. Urology: No evans catheter. No purewick. No urethral discharge. Neurology: Alert and oriented in regards to person, place, time, and situation. No myoclonus, tremors, or tics. DTR+. 5/5 motor strength in all 4 extremities, both proximally and distally. Intermittent, sinuous, and parallel movements of the hands/arms present on 03/01/2025 am, NOT present at all on 03/02/2025 or on 03/03/2025. Psychiatry: No flat affect. No monotone voice. Smiles appropriately. Discharge Plan Discharge Items Patient Disposition: Home - Self-Care Reason For Visit: SEIZURE X 3 Discharge Diagnosis: 1. Acute UTI. 2. Transient hypoxia remains unclear, but is most probably due to hypoventilation, which in turn, is due to a combination of: a. JERE. b. Obesity hypoventilation syndrome. c. Ongoing tobacco abuse with no subsequent diagnosis of COPD, not on home O2 or home steroids. Activity: Resume your previous activity Lifting: Gradually increase as tolerated Bathing: No limitations Sexual Activity: When tolerated Weightbearing: Full weightbearing Non-emergency contact: Primary Care Provider Call non-emergency contact if: you have any medication questions Follow-up/Referrals: Mookie Regan [Primary Care Provider] - Diet: Heart Healthy Addtl Attending Provider Instructions: See your PCP Dr. Mookie Regan within 5-7 days of hospital discharge. Pending Studies at Discharge: Yes Studies:: Follow up with final results for 03/01/2025, 8:21am blood culture #1 and 03/01/2025, 8:26am blood culture #2 Stand-Alone Forms: My [facility], Smoking Cessation Medications and DC Order Prescriptions: Continued prochlorperazine maleate 5 mg tablet 5 mg PO TID PRN (Reason: nausea and vomiting) Qty: 10 0RF topiramate 200 mg tablet 200 mg PO BID 30 Days Qty: 60 5RF rizatriptan 10 mg tablet,disintegrating 10 mg PO Q2H PRN (Reason: migraine headache) Qty: 12 2RF Rx Instructions: do not exceed 3 doses per 24 hrs clonazepam 1 mg tablet,disintegrating 1 mg PO DAILY PRN (Reason: seizure activity) Qty: 20 0RF cholecalciferol (vitamin D3) 125 mcg (5,000 unit) capsule 125 mcg PO DAILY magnesium oxide 400 mg magnesium tablet 400 mg PO DAILY pantoprazole 40 mg tablet,delayed release (DR/EC) 40 mg PO DAILY ibuprofen 800 mg tablet 800 mg PO DAILY PRN (Reason: Pain) metformin 500 mg tablet 500 mg PO BID glucose 4 gram tablet,chewable 4 g PO Q15M PRN (Reason: Hypoglycemia) Rx Instructions: until symptoms of low blood sugar are controlled escitalopram oxalate 10 mg tablet 10 mg PO DAILY quetiapine [Seroquel] 400 mg tablet 800 mg PO HS albuterol sulfate 90 mcg/actuation HFA aerosol inhaler 2 puff inhalation Q6H PRN (Reason: Shortness Of Breath Or Wheezing) fluticasone propion-salmeterol [Advair Diskus] 100-50 mcg/dose blister with device 1 inh inhalation BID gabapentin 800 mg tablet 800 mg PO TID famotidine 20 mg tablet 20 mg PO HS simvastatin [Zocor] 20 mg tablet 20 mg PO QPM hydroxyzine HCl 50 mg tablet 200 mg PO HS benzonatate 200 mg capsule 200 mg PO BID PRN (Reason: Cough) diphenhydramine HCl [Allergy (diphenhydramine)] 25 mg capsule 25 mg PO TID PRN (Reason: ALLERGIES) lamotrigine 25 mg tablet 50 mg PO BID Qty: 60 5RF Rx Instructions: TOTAL DOSE 250 MG--TAKES WITH 200 MG TAB--BID lamotrigine 200 mg tablet 200 mg PO BID 30 Days Qty: 60 5RF Rx Instructions: TOTAL DOSE 250 MG--TAKES WITH 2-25 MG TABS--BID Emgality Pen 120 mg/mL pen injector 120 mg subcut .COMPLEX Qty: 1 11RF Rx Instructions: 120 mg SQ once every 30 days as directed; maintenance dose, to start 30 days after loading dose Trulicity 0.75 mg/0.5 mL pen injector 0.75 mg SUBCUT WK diazepam 5 mg/spray (0.1 mL) spray,non-aerosol 5 mg intranasal .COMPLEX PRN (Reason: Seizure Activity) Rx Instructions: 5 mg intranasally one spray for seizure clusters, or seizure lasting more than 5 minutes; Discharge Orders: Discharge Order (Routine); Ordered 03/03/25 Ordered By: Jairon Jin Admission Data Admit Date/Time: 02/28/25 21:48 Attending Provider: Jairon Jin Admit Provider: Eduardo Culp Primary Care Provider: Mookie Regan Other Providers: Eduardo Culp; Harry Jacobsen Other Interventions: Discharge Summary Assessment (RN) Last Done: 03/03/25 12:04 Hospital Stay Data Consultations 02/28/25 20:31 ED Decision to Admit Stat 03/01/25 00:45 Consult Neurology Routine Diagnostic Imagining Performed 02/28/25 18:11 CT angio head w con Stat CT angio neck with con Stat CT head/brain wo con Stat 02/28/25 21:28 MRI Brain [MR brain wo con] Stat Pending Results Patient Have Any Pending Studies at Discharge: Yes Discharge Instructions Given to Patient (Per Discharging Provider) See your PCP Dr. Mookie Regan within 5-7 days of hospital discharge. Total Time Total Time Spent Total Time Spent (In Minutes): 35 minutes. Of this time period, 19 minutes were spent in coordinating patient's discharge. Coding Level of Care Code 79823 INP/OBS DISCH >30 MIN Diagnoses Seizures R56.9 Hypoxia R09.02 Leukocytosis D72.829
--- NOTE | 2025-03-04 08:55 | Electroencephalogram ---
EEG Procedure Note Date of Service March 04, 2025 Start / End Times Start Time: 604 End Time: 624 Referring Physician henrique serrano History seizure Home Medication List Medication Instructions Recorded Confirmed Type albuterol sulfate 90 mcg/actuation 2 puff inhalation Q6H PRN 11/29/22 02/28/25 History aerosol inhaler Shortness Of Breath Or Wheezing cholecalciferol (vitamin D3) 125 125 mcg PO DAILY 11/29/22 02/28/25 History mcg (5,000 unit) capsule escitalopram oxalate 10 mg tablet 10 mg PO DAILY 11/29/22 02/28/25 History famotidine 20 mg tablet 20 mg PO HS 11/29/22 02/28/25 History fluticasone 100 mcg-salmeterol 50 1 inh inhalation BID 11/29/22 02/28/25 History mcg/dose blistr powdr for inhalation (Advair Diskus) gabapentin 800 mg tablet 800 mg PO TID 11/29/22 02/28/25 History glucose 4 gram chewable tablet 4 g PO Q15M PRN Hypoglycemia 11/29/22 02/28/25 History ibuprofen 800 mg tablet 800 mg PO DAILY PRN Pain 11/29/22 02/28/25 History magnesium oxide 400 mg PO DAILY 11/29/22 02/28/25 History metformin 500 mg tablet 500 mg PO BID 11/29/22 02/28/25 History pantoprazole 40 mg tablet,delayed 40 mg PO DAILY 11/29/22 02/28/25 History release quetiapine 400 mg tablet (Seroquel) 800 mg PO HS 11/29/22 02/28/25 History simvastatin 20 mg tablet (Zocor) 20 mg PO QPM 11/29/22 02/28/25 History hydroxyzine HCl 50 mg tablet 200 mg PO HS 03/09/23 02/28/25 History prochlorperazine maleate 5 mg 5 mg PO TID PRN nausea and 12/29/23 02/28/25 Rx tablet vomiting #10 tabs galcanezumab-gnlm 120 mg/mL 120 mg subcut .COMPLEX #1 mL 01/23/24 02/28/25 Rx subcutaneous pen injector (Emgality Pen) benzonatate 200 mg capsule 200 mg PO BID PRN Cough 10/16/24 02/28/25 History diphenhydramine HCl 25 mg capsule 25 mg PO TID PRN ALLERGIES 10/16/24 02/28/25 History (Allergy (diphenhydramine)) topiramate 200 mg tablet 200 mg PO BID 30 days #60 tabs 11/06/24 02/28/25 Rx lamotrigine 200 mg tablet 200 mg PO BID 30 days #60 tabs 12/18/24 02/28/25 Rx lamotrigine 25 mg tablet 50 mg (2 x 25 mg) PO BID #60 tabs 12/18/24 02/28/25 Rx clonazepam 1 mg disintegrating 1 mg PO DAILY PRN seizure activity 02/20/25 02/28/25 Rx tablet #20 tabs rizatriptan 10 mg disintegrating 10 mg PO Q2H PRN migraine headache 02/20/25 02/28/25 Rx tablet #12 tabs diazepam 5 mg/spray (0.1 mL) nasal 5 mg intranasal .COMPLEX PRN 02/28/25 02/28/25 History spray Seizure Activity dulaglutide 0.75 mg/0.5 mL 0.75 mg subcut WK 02/28/25 02/28/25 History subcutaneous pen injector (Trulicity) Inpatient Medication List Discontinued Medications Acetaminophen (Acetaminophen 1000 Mg/100 Ml Iv) 1,000 mg IV NOW STA Stop: 02/28/25 18:12 Last Admin: 02/28/25 18:31 Dose: Not Given Documented By: JOHN Cefuroxime Axetil (Cefuroxime Axetil 500 Mg Tab) 500 mg PO Q12 REYES Stop: 03/03/25 09:26 Last Admin: 03/03/25 09:58 Dose: 500 mg Documented By: FERNANDA Dexamethasone Sodium Phosphate (DexamethasonePf 10 Mg/Ml Vial) 10 mg IV NOW ONE Stop: 02/28/25 18:12 Last Admin: 02/28/25 18:28 Dose: 10 mg Documented By: JOHN Escitalopram Oxalate (Escitalopram Oxalate 10 Mg Tab) 10 mg PO DAILY REYES Stop: 03/31/25 08:59 Last Admin: 03/03/25 09:18 Dose: 10 mg Documented By: Admin: 03/02/25 09:21 Dose: 10 mg Documented By: Admin: 03/01/25 10:04 Dose: Not Given Documented By: ES Famotidine (Famotidine 20 Mg Tab) 20 mg PO HS [facility] Stop: 03/31/25 20:59 Last Admin: 03/02/25 20:05 Dose: 20 mg Documented By: [facility] Admin: 03/01/25 20:16 Dose: 20 mg Documented By: GT Fluticasone/Vilanterol (Fluticasone/Vilanterol 100/25mcg 14 Puffs/Inhaler) 1 puffs INH DAILY REYES Stop: 03/31/25 08:59 Last Admin: 03/03/25 09:19 Dose: 1 puffs Documented By: Admin: 03/02/25 09:19 Dose: 1 puffs Documented By: Admin: 03/01/25 10:04 Dose: Not Given Documented By: AIDEN Gabapentin (Gabapentin 800 Mg Tab) 800 mg PO TID REYES Stop: 03/31/25 08:59 Last Admin: 03/03/25 09:17 Dose: 800 mg Documented By: Admin: 03/02/25 20:07 Dose: 800 mg Documented By: MARIA LUISA Admin: 03/02/25 14:59 Dose: 800 mg Documented By: Admin: 03/02/25 09:21 Dose: 800 mg Documented By: Admin: 03/01/25 20:11 Dose: 800 mg Documented By: [facility] Admin: 03/01/25 13:02 Dose: Not Given Documented By: Admin: 03/01/25 10:04 Dose: Not Given Documented By: AIDEN Hydroxyzine HCl (Hydroxyzine Hcl 25 Mg Tab) 100 mg PO HS REYES Stop: 03/31/25 20:59 Last Admin: 03/02/25 20:05 Dose: 100 mg Documented By: [facility] Admin: 03/01/25 20:12 Dose: 100 mg Documented By: GT Sodium Chloride (Nss) 1,000 mls @ 999 mls/hr IV .Q1H1M REYES Stop: 02/28/25 19:15 Last Infusion: 02/28/25 20:00 Dose: Infused Documented By: Admin: 02/28/25 18:27 Dose: 999 mls/hr Documented By: JOHN Ceftriaxone Sodium (Rocephin) 2,000 mg in 50 mls @ 100 mls/hr IV NOW STA Stop: 02/28/25 20:29 Last Infusion: 03/01/25 01:12 Dose: Infused Documented By: GT Admin: 02/28/25 20:28 Dose: 100 mls/hr Documented By: ISAURO Cefepime HCl (Maxipime 2000mg) 1,000 mg in 10 mls @ 5 mls/min IV Q12H [facility]; Protocol Stop: 03/06/25 00:44 Last Admin: 03/03/25 02:13 Dose: 5 mls/min Documented By: MARIA LUISA Admin: 03/02/25 15:01 Dose: 5 mls/min Documented By: Admin: 03/02/25 01:56 Dose: 5 mls/min Documented By: MARIA LUISA Admin: 03/01/25 13:27 Dose: 5 mls/min Documented By: Admin: 03/01/25 01:28 Dose: 5 mls/min Documented By: DARIN Ioversol (Optiray 320 125ml) 115 ml IV ONCE ONE Stop: 02/28/25 19:31 Last Admin: 02/28/25 19:31 Dose: 115 ml Documented By: JANUSZ Lamotrigine (Lamotrigine 25 Mg Tab) 50 mg PO BID [facility]; Protocol Stop: 03/31/25 08:59 Last Admin: 03/03/25 09:18 Dose: 50 mg Documented By: Admin: 03/02/25 20:08 Dose: 50 mg Documented By: [facility] Admin: 03/02/25 09:20 Dose: 50 mg Documented By: Admin: 03/01/25 20:11 Dose: 50 mg Documented By: [facility] Admin: 03/01/25 10:04 Dose: Not Given Documented By: AIDEN Lamotrigine (Lamotrigine 100 Mg Tab) 200 mg PO BID [facility] Stop: 03/31/25 08:59 Last Admin: 03/03/25 09:17 Dose: 200 mg Documented By: Admin: 03/02/25 20:07 Dose: 200 mg Documented By: MARIA LUISA Admin: 03/02/25 09:21 Dose: 200 mg Documented By: Admin: 03/01/25 20:13 Dose: 200 mg Documented By: [facility] Admin: 03/01/25 10:05 Dose: Not Given Documented By: AIDEN Levetiracetam (Levetiracetam 500 Mg/5 Ml Vial) 2,750 mg IV NOW STA Stop: 02/28/25 18:21 Last Admin: 02/28/25 18:31 Dose: 2,750 mg Documented By: NRB Lorazepam (Lorazepam 2 Mg/1 Ml Vial) 1 mg IV NOW STA Stop: 02/28/25 21:53 Last Admin: 02/28/25 22:03 Dose: 1 mg Documented By: MAIKEL Lorazepam (Lorazepam 2 Mg/1 Ml Vial) Confirm Administered Dose 2 mg .ROUTE .STK- MED ONE Stop: 03/01/25 07:59 Last Admin: 03/01/25 08:01 Dose: 2 mg Documented By: ES Lorazepam (Lorazepam 2 Mg/1 Ml Vial) 2 mg IV NOW STA Stop: 03/01/25 08:11 Last Admin: 03/01/25 09:36 Dose: Not Given Documented By: ES Melatonin (Melatonin 3 Mg Tab) 3 mg PO HS PRN PRN Reason: Sleep Stop: 03/31/25 00:44 Last Admin: 03/02/25 20:05 Dose: 3 mg Documented By: GTLaura Admin: 03/01/25 20:16 Dose: 3 mg Documented By: DARIN Miscellaneous (Remove Nicoderm Patch) 1 each N/A DAILY@0859 [facility] Stop: 03/31/25 08:58 Last Admin: 03/03/25 09:19 Dose: 1 each Documented By: Admin: 03/02/25 09:21 Dose: 1 each Documented By: Admin: 03/01/25 10:04 Dose: 1 each Documented By: AIDNE Nicotine (Nicotine 14 Mg/24 Hr Patch) 1 patch TD QAM [facility] Stop: 03/31/25 08:59 Last Admin: 03/03/25 09:19 Dose: 1 patch Documented By: Admin: 03/02/25 09:21 Dose: 1 patch Documented By: Admin: 03/01/25 10:05 Dose: Not Given Documented By: ES Ondansetron HCl (Ondansetron Inj 2 Mg/Ml 2 Ml Vial) 4 mg IV NOW STA Stop: 02/28/25 18:44 Last Admin: 02/28/25 18:47 Dose: 4 mg Documented By: NRRadha Pantoprazole Sodium (Pantoprazole 40 Mg Tab) 40 mg PO DAILY REYES Stop: 03/31/25 08:59 Last Admin: 03/03/25 09:17 Dose: 40 mg Documented By: Admin: 03/02/25 09:21 Dose: 40 mg Documented By: Admin: 03/01/25 10:05 Dose: Not Given Documented By: AIDEN Quetiapine Fumarate (Quetiapine Fumarate 200 Mg Tab) 800 mg PO HS REYES Stop: 03/31/25 20:59 Last Admin: 03/02/25 20:06 Dose: 800 mg Documented By: [facility] Admin: 03/01/25 20:13 Dose: 800 mg Documented By: MARIA LUISA Simvastatin (Simvastatin 20 Mg Tab) 20 mg PO QPM REYES Stop: 03/31/25 20:59 Last Admin: 03/02/25 20:08 Dose: 20 mg Documented By: [facility] Admin: 03/01/25 20:14 Dose: 20 mg Documented By: [facility] Topiramate (Topiramate 100 Mg Tab) 200 mg PO BID REYES Stop: 03/31/25 08:59 Last Admin: 03/03/25 09:17 Dose: 200 mg Documented By: Admin: 03/02/25 20:08 Dose: 200 mg Documented By: [facility] Admin: 03/02/25 09:21 Dose: 200 mg Documented By: Admin: 03/01/25 20:13 Dose: 200 mg Documented By: [facility] Admin: 03/01/25 10:06 Dose: Not Given Documented By: AIDEN Description This is a 21 electrode EEG with a single channel dedicated to limited EKG. The electrodes were placed in accordance with the International 10-20 system. Interpretation This is a 21 electrode EEG with a single channel dedicated to limited EKG. The electrodes were placed in accordance with the International 10-20 system. There is a posterior dominant rhythm of 8 to 9 Hz which is symmetrically distributed and attenuates with eye opening. There is a normal anterior to poste rior organization. Photic stimulation: unremarkable Hyperventilation performed: _x__ unremarkable; __ not performed. There is no focal slowing. No epileptiform abnormalities. Sleep stage: _x_ not achieved, ___drowsy state, ___ Stage II, ___ REM stage achieved. Interpretation Normal-appearing awake EEG. A normal EEG does not completely exclude a diagnosis of epilepsy. [facility] Procedure Codes Indication for Procedure (1) Seizures: Neurology Neurology: 48929 EEG include record awake & drowsy
== END 2025-03-03 13:51 | disposition home or self-care (01) | DRG 71 ==
LOC: SUATTDRO → ED 17:43 → 4W 21:48 → SUATTDRO 21:48 → 4W 03-01 00:16